=== PATIENT | female | born 1985 | race Caucasian/White ===

== ENCOUNTER → 2016-09-26 | Outpatient (CLI) | payer BC | END | disposition home or self-care (01) | LOC: M WUC 11:13 | PROVIDERS: ATTEND Specialist | DX: O24.113 Pre-existing type 2 diabetes mellitus, in pregnancy, third trimester (principal); Z36 Encounter for antenatal screening of mother; Z3A.00 Weeks of gestation of pregnancy not specified ==

== ENCOUNTER → 2016-10-01 | Outpatient (REF) | payer BC ==
[2016-10-01 17:53] LABS: BASO % 0.5 % (0.0-1.0); EOS # 0.1 K/mm3 (0.0-0.50); EOS % 1.6 % (0.0-3.0); LARGE UNSTAINED CELL # 0.2 K/mm3 (0.0-0.4); LYMPH % 23.8 % (24.0-44.0); MEAN CORPUSCULAR HEMOGLOBIN 28.5 pg (27.0-33.0); MEAN CORPUSCULAR HGB CONC 33.3 g/dl (32.0-36.5); MEAN CORPUSCULAR VOLUME 85.7 fl (80.0-96.0); MONO # 0.5 K/mm3 (0.0-0.8); MONO % 6.2 % (0.0-5.0); NEUTROPHILS # 5.4 K/mm3 (1.8-7.7); NEUTROPHILS % 65.9 % (36.0-66.0); PLATELET COUNT, AUTOMATED 224 k/mm3 (150-450); RED CELL DISTRIBUTION WIDTH 13.1 % (11.5-14.5); WHITE BLOOD COUNT 8.2 K/mm3 (4.0-10.0)
[2016-10-01 19:51] LABS: FREE T4 1.08 NG/DL (0.76-1.46)
[2016-10-04 11:31] LABS: HBsAg Prenatal NEGATIVE (NEGATIVE)
[2016-10-04 12:51] LABS: CONTROL LINE INT CTR LINE PRESENT; HIV SCRN NEGATIVE (NEGATIVE); HIV SCRN1 NEGATIVE (NEGATIVE)
== END | disposition home or self-care (01) ==
LOC: M LABSMT 16:45
PROVIDERS: ATTEND Specialist
DX: Z34.81 Encounter for supervision of other normal pregnancy, first trimester (principal); Z36 Encounter for antenatal screening of mother; Z3A.00 Weeks of gestation of pregnancy not specified

== ENCOUNTER → 2016-12-15 | Outpatient (CLI) | payer BC ==
--- NOTE | 2016-12-15 17:38 | REP ---
OB ULTRASOUND: REASON: anatomy. There are no pertinent priors. Multiple sonographic images of the gravid uterus show a single living intrauterine gestation in the cephalic presentation. Doppler interrogation of the heart shows a heart rate of 163 beats per minute. The placenta is anterior and not lying. The subjective amniotic fluid volume is within normal limits. The cervix measures 4.3 cm in length and is closed. Evaluation of the maternal adnexal spaces show no abnormalities The structures visualized unremarkable are as follows: Thalami, cavum, septum pellucidum, urinary bladder, extremities, cord insertion, stomach, right and left ventricular outflow tracts, and thorax. Structures suboptimally visualized are as follows: Cerebellum and posterior fossa, cisterna magna, four chamber heart, kidneys, spine, upper lip, and facial features. BPD 4.9 cm = 20 weeks 5 days HC 18.4 cm = 20 weeks 5 days AC 15.7 cm = 20 weeks 6 days FL 2.8 cm = 18 weeks 3 days Estimated weight 316 grams which is at the 39th percentile for a 20 week one day gestational age. IMPRESSION: Single living intrauterine gestation as described above and an estimated gestational age of 20 weeks 1 day via composite criteria and an estimated date of delivery of 05/03/2017. anatomical screen was complete as described above and followup is recommended. Signed by Vik Spicer DO 12/20/2016 02:51 P
== END ==
LOC: M RAD 16:07
PROVIDERS: ATTEND Specialist
DX: Z34.82 Encounter for supervision of other normal pregnancy, second trimester (principal); Z36 Encounter for antenatal screening of mother; Z3A.20 20 weeks gestation of pregnancy

== ENCOUNTER → 2016-12-28 | Outpatient (REF) | payer BC | LOC: M SFHCCLAY 10:59 | PROVIDERS: ATTEND Nurse Practitioner | DX: E11.8 Type 2 diabetes mellitus with unspecified complications (principal); E03.9 Hypothyroidism, unspecified ==

== ENCOUNTER → 2017-01-06 | Outpatient (CLI) | payer BC ==
--- NOTE | 2017-01-06 20:46 | REP ---
Clinical: Anatomical evaluation. Comparison: 12/15/2016 . Findings: Examination demonstrates a single live intrauterine in cephalic presentation. motion is identified by technologist. Placenta is noted anteriorly and grade zero without evidence for placenta previa or abruption. Amniotic fluid volume is normal. Cervix measures 5.2 cm in length and appears closed. No evidence for nuchal cord. Gestational age by LMP 22 weeks 2 days with XU 05/10/2017 . Gestational age by current measurements 24 weeks 4 days with XU 04/24/2017 . FHR equals 150 beats per minute. Estimated weight 679 grams (>97% by LMP; 80% by current measurements). Anatomical assessment demonstrates normal structures including cranium, choroid plexus, cavum, cerebellum/posterior fossa, facial features, lungs, four-chamber heart, diaphragm, stomach, cord insertion/three-vessel cord, kidneys/bladder, spine, and extremities. Impression: 1. Single live intrauterine in cephalic presentation demonstrating appropriate interval growth when compared to first ultrasound. 2. In conjunction with prior examination anatomical assessment is complete and normal. Signed by Joao Pal MD 01/06/2017 05:11 P
== END ==
LOC: M RAD 14:13
PROVIDERS: ATTEND Specialist
DX: Z34.82 Encounter for supervision of other normal pregnancy, second trimester (principal); Z36 Encounter for antenatal screening of mother; Z3A.24 24 weeks gestation of pregnancy

== ENCOUNTER → 2017-01-30 | Outpatient (CLI) | payer BC ==
[2017-01-30 17:32] LABS: BASO % 0.2 % (0.0-1.0); EOS # 0.2 K/mm3 (0.0-0.50); LARGE UNSTAINED CELL # 0.1 K/mm3 (0.0-0.4); LARGE UNSTAINED CELL % 1.6 % (0.0-4.0); LYMPH # 1.4 K/mm3 (1.5-4.5); LYMPH % 17.1 % (24.0-44.0); MEAN CORPUSCULAR HEMOGLOBIN 28.9 pg (27.0-33.0); MEAN CORPUSCULAR HGB CONC 32.9 g/dl (32.0-36.5); MEAN CORPUSCULAR VOLUME 87.8 fl (80.0-96.0); MONO # 0.6 K/mm3 (0.0-0.8); MONO % 7.6 % (0.0-5.0); NEUTROPHILS # 5.3 K/mm3 (1.8-7.7); NEUTROPHILS % 71.6 % (36.0-66.0); PLATELET COUNT, AUTOMATED 186 k/mm3 (150-450); RED CELL DISTRIBUTION WIDTH 14.4 % (11.5-14.5); WHITE BLOOD COUNT 7.4 K/mm3 (4.0-10.0)
== END ==
LOC: M WUC 08:25
PROVIDERS: ATTEND Specialist
DX: O24.112 Pre-existing type 2 diabetes mellitus, in pregnancy, second trimester (principal); Z36 Encounter for antenatal screening of mother; Z3A.00 Weeks of gestation of pregnancy not specified

== ENCOUNTER → 2017-01-30 | Outpatient (CLI) | payer BC ==
[2017-01-30 17:40] LABS: ALBUMIN 2.6 GM/DL (3.2-5.2); ALBUMIN/GLOBULIN RATIO 0.84 (1.00-1.93); ALKALINE PHOSPHATASE 50 U/L (45-117); ALT/SGPT 14 U/L (12-78); ANION GAP 9 MEQ/L (8-16); AST/SGOT 9 U/L (15-37); BILIRUBIN,TOTAL 0.3 MG/DL (0.2-1.0); BLOOD UREA NITROGEN 7 MG/DL (7-18); CALCIUM LEVEL 7.8 MG/DL (8.5-10.1); CARBON DIOXIDE LEVEL 24 MEQ/L (21-32); CHLORIDE LEVEL 105 MEQ/L (98-107); CHOLESTEROL LEVEL 190 MG/DL (<200); CREATININE FOR GFR 0.43 MG/DL (0.55-1.02); GLOMERULAR FILTRATION RATE > 60.0 (>60); GLUCOSE, FASTING 74 MG/DL (70-105); POTASSIUM SERUM 4.1 MEQ/L (3.5-5.1); SODIUM LEVEL 138 MEQ/L (136-145); TOTAL PROTEIN 5.7 GM/DL (6.4-8.2); TRIGLYCERIDES LEVEL 158 MG/DL (<150)
== END ==
LOC: M WUC 08:22
PROVIDERS: ATTEND Nurse Practitioner
DX: E11.8 Type 2 diabetes mellitus with unspecified complications (principal); E03.9 Hypothyroidism, unspecified

== ENCOUNTER 2017-02-17 07:57 | Outpatient (CLI) | payer BC ==
[~2017-02-17] VITALS: Ht 165.1 cm; Wt 115.0 kg
[2017-02-17 08:08] VITALS: BP 151/88
[2017-02-17 08:22] VITALS: BP 138/83
[2017-02-17] MEDS ORDERED: SING5CHW23 PO (09:20)
[2017-02-17] MEDS ORDERED: LEVO100T5 PO (09:20)
[2017-02-17] MEDS ORDERED: GLYB5TA PO (09:20)
[2017-02-17 09:27] VITALS: BP 124/73
[2017-02-17 10:41] VITALS: BP 125/60
[2017-02-17 10:54] LABS: MEAN CORPUSCULAR HGB CONC 34.3 g/dl (32.0-36.5); MEAN CORPUSCULAR VOLUME 84.5 fl (80.0-96.0); RED CELL DISTRIBUTION WIDTH 14.3 % (11.5-14.5); WHITE BLOOD COUNT 9.3 K/mm3 (4.0-10.0)
[2017-02-17 11:49] LABS: GLUCOSE, FASTING 157 MG/DL (70-105)
[2017-02-17 11:50] LABS: ALBUMIN 2.4 GM/DL (3.2-5.2); ALBUMIN/GLOBULIN RATIO 0.73 (1.00-1.93); ALKALINE PHOSPHATASE 62 U/L (45-117); ALT/SGPT 13 U/L (12-78); AMYLASE 38 U/L (25-115); ANION GAP 7 MEQ/L (8-16); AST/SGOT 7 U/L (15-37); BILIRUBIN,TOTAL 0.3 MG/DL (0.2-1.0); BLOOD UREA NITROGEN 5 MG/DL (7-18); CALCIUM LEVEL 8.4 MG/DL (8.5-10.1); CARBON DIOXIDE LEVEL 24 MEQ/L (21-32); CHLORIDE LEVEL 107 MEQ/L (98-107); CREATININE FOR GFR 0.38 MG/DL (0.55-1.02); GLOMERULAR FILTRATION RATE > 60.0 (>60); POTASSIUM SERUM 3.9 MEQ/L (3.5-5.1); SODIUM LEVEL 138 MEQ/L (136-145); TOTAL PROTEIN 5.7 GM/DL (6.4-8.2); URIC ACID 2.1 MG/DL (2.6-6.0)
== END 2017-02-17 12:25 | disposition home or self-care (01) ==
LOC: M LDO 07:57
PROVIDERS: ATTEND Obstetrics & Gynecology
DX: O99.89 Other specified diseases and conditions complicating pregnancy, childbirth and the puerperium (principal); O26.853 Spotting complicating pregnancy, third trimester; O24.420 Gestational diabetes mellitus in childbirth, diet controlled; O99.285 Endocrine, nutritional and metabolic diseases complicating the puerperium; E03.9 Hypothyroidism, unspecified; O99.340 Other mental disorders complicating pregnancy, unspecified trimester; Z79.84 Long term (current) use of oral hypoglycemic drugs; Z79.899 Other long term (current) drug therapy; Z3A.28 28 weeks gestation of pregnancy

== ENCOUNTER → 2017-03-18 | Outpatient (CLI) | payer BC ==
[~2017-03-18] MED LIST: COLA100C5 PO; FLUO20CA8 PO; GLYB5TA PO; IBUP-1114 PO; IBUP1TAB7 PO; LABE30TA PO; LEVO100T5 PO; MOM30SS PO; OXYC1TAB23 PO; PAXI40TA10 PO; PERCOCET PO; PRENTAB9 PO; PROAAER10 INH; SING5CHW23 PO
--- NOTE | 2017-03-18 16:20 | REP ---
Clinical: Growth evaluation. Comparison: 01/06/2017 . Findings: Examination demonstrates a single live intrauterine in cephalic presentation. motion is identified by technologist. Placenta is noted anteriorly and grade one without evidence for placenta previa or abruption. Amniotic fluid volume is normal. Nuchal cord cannot be excluded. Gestational age by LMP 32 weeks 3 days with XU 05/10/2017 . Gestational age by current measurements 33 weeks 3 days with XU 05/03/2017 . FHR equals 141 beats per minute. BPD 8.6 cm 34 weeks 4 days HC 30.1 cm 33 weeks 3 days AC 30.3 cm 34 weeks 2 days FL 6.5 cm 33 weeks 2 days HL 5.8 cm 33 weeks 6 days HC/AC ratio 1.00 Estimated weight 2310 grams ( 75th percentile). Amniotic fluid index = 23.0 cm (8.5 - 24.3) Impression: 1. Single live advanced gestation in cephalic presentation demonstrating appropriate interval growth. 2. Amniotic fluid index and estimated weight are within normal range. 3. Nuchal cord cannot be excluded. Signed by Joao Pal MD 03/18/2017 04:12 P
== END ==
LOC: M RAD 15:17
PROVIDERS: ATTEND Obstetrics & Gynecology
DX: O24.113 Pre-existing type 2 diabetes mellitus, in pregnancy, third trimester (principal); Z36 Encounter for antenatal screening of mother; Z3A.33 33 weeks gestation of pregnancy; E11.9 Type 2 diabetes mellitus without complications

== ENCOUNTER 2017-04-05 06:11 | Outpatient (CLI) | payer BC ==
[2017-04-05] VITALS (27 sets, daily range): BP systolic 133–206; BP diastolic 73–119
[~2017-04-05] VITALS: Ht 165.1 cm; Wt 125.0 kg
[~2017-04-05 06:11] MED LIST changes: -COLA100C5 PO; -FLUO20CA8 PO; -IBUP-1114 PO; -IBUP1TAB7 PO; -LABE30TA PO; -MOM30SS PO; -OXYC1TAB23 PO; -PAXI40TA10 PO; -PERCOCET PO; -PRENTAB9 PO; -PROAAER10 INH
[2017-04-05 09:39] LABS: MEAN CORPUSCULAR HEMOGLOBIN 28.8 pg (27.0-33.0); MEAN CORPUSCULAR VOLUME 84.8 fl (80.0-96.0); RED CELL DISTRIBUTION WIDTH 14.5 % (11.5-14.5); WHITE BLOOD COUNT 8.6 K/mm3 (4.0-10.0)
[2017-04-05 09:56] LABS: ALBUMIN 2.2 GM/DL (3.2-5.2); ALBUMIN/GLOBULIN RATIO 0.71 (1.00-1.93); ALKALINE PHOSPHATASE 115 U/L (45-117); ALT/SGPT 16 U/L (12-78); ANION GAP 7 MEQ/L (8-16); AST/SGOT 12 U/L (15-37); BILIRUBIN,TOTAL 0.2 MG/DL (0.2-1.0); BLOOD UREA NITROGEN 5 MG/DL (7-18); CALCIUM LEVEL 8.3 MG/DL (8.5-10.1); CARBON DIOXIDE LEVEL 25 MEQ/L (21-32); CHLORIDE LEVEL 103 MEQ/L (98-107); CREATININE FOR GFR 0.48 MG/DL (0.55-1.02); GLOMERULAR FILTRATION RATE > 60.0 (>60); GLUCOSE, FASTING 191 MG/DL (70-105); POTASSIUM SERUM 4.4 MEQ/L (3.5-5.1); SODIUM LEVEL 135 MEQ/L (136-145); TOTAL PROTEIN 5.3 GM/DL (6.4-8.2)
[2017-04-15] MEDS ORDERED: PAXI40TA10 PO (07:50)
[2017-04-15] MEDS ORDERED: PROAAER10 INH (07:55)
== END 2017-04-05 17:12 | disposition home or self-care (01) ==
LOC: M LDO 06:11
PROVIDERS: ATTEND Advanced Practice Midwife
DX: O36.8130 Decreased fetal movements, third trimester, not applicable or unspecified (principal); O13.3 Gestational [pregnancy-induced] hypertension without significant proteinuria, third trimester; Z3A.35 35 weeks gestation of pregnancy

== ENCOUNTER → 2017-04-07 | Outpatient (REF) | payer BC ==
[~2017-04-07] MED LIST changes: +COLA100C5 PO; +FLUO20CA8 PO; +IBUP-1114 PO; +IBUP1TAB7 PO; +LABE30TA PO; +MOM30SS PO; +OXYC1TAB23 PO; +PAXI40TA10 PO; +PERCOCET PO; +PRENTAB9 PO; +PROAAER10 INH
== END ==
LOC: M LAB REF 16:46
PROVIDERS: ATTEND Specialist
DX: O24.113 Pre-existing type 2 diabetes mellitus, in pregnancy, third trimester (principal); Z36 Encounter for antenatal screening of mother; Z3A.00 Weeks of gestation of pregnancy not specified

== ENCOUNTER → 2017-04-14 | Outpatient (CLI) | payer BC ==
[2017-04-14 16:47] LABS: MEAN CORPUSCULAR HEMOGLOBIN 28.2 pg (27.0-33.0); MEAN CORPUSCULAR HGB CONC 33.6 g/dl (32.0-36.5); MEAN CORPUSCULAR VOLUME 83.8 fl (80.0-96.0); RED CELL DISTRIBUTION WIDTH 14.6 % (11.5-14.5); WHITE BLOOD COUNT 9.7 K/mm3 (4.0-10.0)
[2017-04-14 17:09] LABS: ALBUMIN 2.1 GM/DL (3.2-5.2); ALBUMIN/GLOBULIN RATIO 0.62 (1.00-1.93); ALKALINE PHOSPHATASE 128 U/L (45-117); ALT/SGPT 23 U/L (12-78); ANION GAP 13 MEQ/L (8-16); AST/SGOT 19 U/L (15-37); BILIRUBIN,TOTAL 0.3 MG/DL (0.2-1.0); BLOOD UREA NITROGEN 6 MG/DL (7-18); CALCIUM LEVEL 8.3 MG/DL (8.5-10.1); CARBON DIOXIDE LEVEL 22 MEQ/L (21-32); CHLORIDE LEVEL 105 MEQ/L (98-107); CREATININE FOR GFR 0.42 MG/DL (0.55-1.02); GLOMERULAR FILTRATION RATE > 60.0 (>60); GLUCOSE, FASTING 63 MG/DL (70-105); POTASSIUM SERUM 4.6 MEQ/L (3.5-5.1); SODIUM LEVEL 140 MEQ/L (136-145); TOTAL PROTEIN 5.5 GM/DL (6.4-8.2)
== END ==
LOC: M WUC 13:39
PROVIDERS: ATTEND Obstetrics & Gynecology
DX: O24.113 Pre-existing type 2 diabetes mellitus, in pregnancy, third trimester (principal)

== ENCOUNTER → 2017-04-18 | Outpatient (CLI) | payer BC ==
--- NOTE | 2017-04-18 11:55 | REP ---
Obstetric ultrasound for growth: There is a single intrauterine gestation in a vertex presentation. There is movement and cardiac activity, the heart rate is 144 beats per minute. The placenta is anterior. There is no placenta previa or abruptio. The placenta demonstrates grade three maturity. The amniotic fluid volume subjectively is normal. The amniotic fluid index is 22.2 (7.5 - 24.5). By today's ultrasound the gestational age is 38 weeks 0 days with an XU of 05/02/2017. According to the first ultrasound during this gestation the gestational age is 37 weeks 6 days with an XU of 05/03/2017. By LMP 36 weeks 6 days with an XU of 05/10/2017. weight is for 4888 grams (10 pounds, 12 ounces). This is greater than the 79th percentile for 36 weeks 6 days. The maternal adnexa and cul-de-sac are unremarkable. Signed by Canelo Heath MD 04/18/2017 11:45 A
== END ==
LOC: M RAD 10:16
PROVIDERS: ATTEND Specialist
DX: Z36 Encounter for antenatal screening of mother (principal)

== ENCOUNTER 2017-04-19 13:33 | Inpatient (IN) | payer BC ==
[~2017-04-19] VITALS: Ht 165.1 cm; Wt 125.0 kg
[2017-04-19] VITALS (13 sets, daily range): BP systolic 122–174; BP diastolic 61–103
[~2017-04-19 13:33] MED LIST changes: -COLA100C5 PO; -FLUO20CA8 PO; -IBUP-1114 PO; -IBUP1TAB7 PO; -LABE30TA PO; -MOM30SS PO; -OXYC1TAB23 PO; -PERCOCET PO; -PRENTAB9 PO
[2017-04-19] MEDS ORDERED: NIFEdipine 10 MG CAP PO ONE (15:30)
[2017-04-19] MEDS ORDERED: LACTATED RINGER'S 1000 ML IV STA (15:54)
[2017-04-19] MEDS ORDERED: LR 1,000 ML IV SCH (15:54)
[2017-04-19] MEDS ORDERED: BICITRA 30ML SOLN UDC PO ONE (16:00)
[2017-04-19 16:10] LABS: MEAN CORPUSCULAR HEMOGLOBIN 28.4 pg (27.0-33.0); MEAN CORPUSCULAR HGB CONC 34.1 g/dl (32.0-36.5); MEAN CORPUSCULAR VOLUME 83.3 fl (80.0-96.0); WHITE BLOOD COUNT 11.4 K/mm3 (4.0-10.0)
--- NOTE | 2017-04-19 16:29 | HPE ---
DATE OF ADMISSION: 04/19/2017 CHIEF COMPLAINT: Headaches and blood pressures consistent with preeclampsia. HISTORY OF PRESENT ILLNESS: The patient is a 31-year-old, 2, para 1-0-0-1 at 37 weeks gestation with an estimated due date of 05/10/2017, by last menstrual period of 08/03/2016, confirmed by first trimester ultrasound. She presents complaining of headache since waking up this morning. She also complains of blurry vision. She has been having Nitesh Aguilera contractions for a few weeks now off and on. She denies leakage of fluid, bleeding, and discharge. She states that she is feeling the baby move. LABORATORY DATA: Blood type is O positive, blood pressures in the office have been ranging from 118-172 systolic over 64-96 diastolic. Blood pressure in the office today was 172/96. She is group B Streptococcus (GBS) positive, Rubella equivocal, HIV negative, gonorrhea and chlamydia negative, hepatitis B antigen negative, hepatitis C nonreactive. OBSTETRICAL ULTRASOUND: Ultrasound from 03/18/2017 shows anterior placenta, no previa or abruption, no abnormalities noted. PAST OBSTETRICAL HISTORY: 1. In 2008, she gave to a female weighing 8 pounds 4 ounces at 38 weeks via an emergency section secondary to bradycardia. PAST MEDICAL HISTORY: 1. Hypothyroidism. 2. Diabetes mellitus (White classification B). 3. Asthma. 4. Anxiety. MEDICATIONS: - glyburide 10 mg twice a day - levothyroxine 112 mcg - fluoxetine 40 mg - albuterol sulfate 0.63 mg/3 mL - Singulair 10 mg - vitamins PAST SURGICAL HISTORY: 1. In 2008, emergency section secondary to bradycardia. 2. Age 10, tonsillectomy. ALLERGIES: METFORMIN, respiratory symptoms. SOCIAL HISTORY: Patient is . Denies tobacco, alcohol, or drug use. PHYSICAL EXAMINATION: VITAL SIGNS: Temperature 99, pulse 93, respiratory rate 18, blood pressure 172/91. GENERAL: Patient looks fatigued. ABDOMEN: Gravid. FHR: 150, minimal variability, no accelerations, no decelerations. TOCOMETER: Contractions every 5-7 minutes. ASSESSMENT AND PLAN: 1. 32-year-old 2, para 1-0-0-1 at 37 weeks gestation with symptoms consistent with preeclampsia. Admit to labor and delivery. Preeclampsia profile. Labs have been ordered. Given nifedipine 10 mg by mouth. Establish IV access. 2. Anticipate repeat section. My preceptor for this patient encounter was Dr. Barney Rebolledo. The preceptor was physically present in the building during the encounter and was fully available. As needed, all aspects of the patient interview, examination, medical decision making process, and medical care plan development were reviewed and approved by the preceptor. The preceptor is aware and concurs with the plan as stated in the body of this note and will attest to such by his/her cosignature. Read and agree with above. In addition to above, labs obtained upon admission c /w pre-eclampsia. Patient was given antihypertensive for acute control of severe range elevated BP. Clinical picture consistent with pre-eclampsia w/ severe features. Plan is to deliver tonight instead of tomorrow's scheduled . Patient will be started on Magnesium Sulfate s/p . Dario Rebolledo D.O. AGUEDA
[2017-04-19] MEDS ORDERED: FLUO20CA8 PO (16:32)
[2017-04-19] MEDS ORDERED: PRENTAB9 PO (16:34)
[2017-04-19 17:12] LABS: ALT/SGPT 39 U/L (12-78); AST/SGOT 48 U/L (15-37); BILIRUBIN,TOTAL 0.4 MG/DL (0.2-1.0); GLOMERULAR FILTRATION RATE > 60.0 (>60); URIC ACID 4.8 MG/DL (2.6-6.0)
[2017-04-19] MEDS ORDERED: MORPHINE PRES-FREE INJ 10 MG/10 ML VIAL (J2274) As Ordered ONE (18:50)
[2017-04-19] MEDS ORDERED: OXYTOCIN INJ 10 UNITS/ML VIAL (J2590) As Ordered ONE ×2 (18:57→20:23)
[2017-04-19] MEDS ORDERED: METOCLOPRAMIDE INJ 10MG/2ML VIAL (J2765) IV PRN (19:12)
[2017-04-19] MEDS ORDERED: ONDANSETRON 4MG/2ML VIAL (J2405) IV PRN (19:12)
[2017-04-19] MEDS ORDERED: NALOXONE INJ 0.4 MG/1 ML VIAL (J2310) IV PRN ×2 (19:12)
[2017-04-19] MEDS ORDERED: NALBUPHINE HCL 10 MG/ML AMP (J2300) IV PRN (19:12)
[2017-04-19] MEDS ORDERED: PHENYLephrine HCL 500 MCG/5 ML (100MCG/ML) SYRINGE (J2370) As Ordered ONE (19:22)
[2017-04-19] MEDS ORDERED: MAGNESIUM *L&D* 4 GM/100 ML BAG (40MG/ML) (J3475) As Ordered ONE (19:34)
[2017-04-19] MEDS ORDERED: MAGNESIUM SULFATE 4% INJ 20GM/500ML (40MG/ML) (J3475) As Ordered ONE (19:34)
[2017-04-19] MEDS ORDERED: ONDANSETRON 4MG/2ML VIAL (J2405) As Ordered ONE (19:36)
[2017-04-19] MEDS ORDERED: KETOROLAC 60 MG/2 ML VIAL (J1885) As Ordered ONE (19:36)
[2017-04-19] MEDS ORDERED: ePHEDrine SULFATE 25 MG/5 ML(5MG/ML) SYRINGE As Ordered ONE (19:36)
[2017-04-19 20:18] LABS: CORD GAS ABE A -6.4; CORD GAS HCO3 A 24.7 MEQ/L; CORD GAS O2 SAT A 40.7 %; CORD GAS PH A 7.13 UNITS; CORD GAS PO2 A 24.2 mmHg
[2017-04-19 20:20] LABS: CORD GAS ABE V -4.6; CORD GAS HCO3 V 23.8 MEQ/L; CORD GAS O2 SAT V 50.5 %; CORD GAS PCO2 V 57.3 mmHg; CORD GAS PH V 7.237 UNITS; CORD GAS PO2 V 25.1 mmHg; CORD GAS SBC V 19.6 MEQ/L; CORD GAS TCO2 V 25.6 MEQ/L
[2017-04-19] MEDS ORDERED: MAG Sulf (OBGYN) 20GM/500ML 20,000 MG in APPROPRIATE DILUENT 1 EA IV SCH (20:53)
[2017-04-19] MEDS ORDERED: DOCUSATE SODIUM 100 MG CAP PO PRN (21:00)
[2017-04-19] MEDS ORDERED: PERCOCET 5MG/325MG TAB PO PRN (21:00)
[2017-04-19] MEDS ORDERED: CALCIUM GLUCONATE 1,000 MG in D5W MINI-BAG PLUS 100 ML IV PRN (21:00)
[2017-04-19] MEDS ORDERED: MOM 30ML SUSPENSION UDC PO PRN (21:00)
[2017-04-19] MEDS ORDERED: MEASLES,MUMPS,RUBELLA VACCINE INJ (MMR-II) (90707) SC SCH (21:00)
[2017-04-19] MEDS ORDERED: RHOGAM 300 MCG (1500 IU) INJ (J2790) IM SCH (21:00)
[2017-04-19] MEDS ORDERED: MAG Sulf (L&D) 4 GM/100 ML 4 GM in APPROPRIATE DILUENT 1 EA IV ONE (21:00)
[2017-04-19] MEDS: LR 1,000 ML IV SCH (21:18)
[2017-04-19] MEDS ORDERED: LABETALOL HCL 100 MG/20 ML VIAL IV STA (21:51)
[2017-04-20] VITALS (18 sets, daily range): BP systolic 125–167; BP diastolic 60–90
[2017-04-20] MEDS ORDERED: METOCLOPRAMIDE INJ 10MG/2ML VIAL (J2765) IV PRN (04:15)
[2017-04-20] MEDS ORDERED: ONDANSETRON 4MG/2ML VIAL (J2405) IV PRN (04:15)
[2017-04-20] MEDS ORDERED: LR 1,000 ML IV SCH (04:15)
[2017-04-20] MEDS ORDERED: fentaNYL 100 MCG/2 ML INJECTION (J3010) IV PRN (04:15)
[2017-04-20 07:17] LABS: MEAN CORPUSCULAR HEMOGLOBIN 28.1 pg (27.0-33.0); MEAN CORPUSCULAR HGB CONC 33.7 g/dl (32.0-36.5); MEAN CORPUSCULAR VOLUME 83.5 fl (80.0-96.0); RED CELL DISTRIBUTION WIDTH 14.9 % (11.5-14.5); WHITE BLOOD COUNT 9.8 K/mm3 (4.0-10.0)
[2017-04-20] MEDS: KETOROLAC 30 MG/ML VIAL (J1885) IV SCH ×3 (07:32→20:04)
[2017-04-20 07:35] LABS: ALT/SGPT 27 U/L (12-78); AST/SGOT 29 U/L (15-37); BILIRUBIN,TOTAL 0.3 MG/DL (0.2-1.0); CREATININE FOR GFR 0.47 MG/DL (0.55-1.02); GLOMERULAR FILTRATION RATE > 60.0 (>60); URIC ACID 4.9 MG/DL (2.6-6.0)
[2017-04-20] MEDS: PRENATAL VITAMINS CHEWABLE TABLET PO SCH (08:50)
[2017-04-20] MEDS ORDERED: ALBUTEROL 90 MCG/ACT 8GM HFA INHALER INH PRN (10:45)
[2017-04-20] MEDS: LR 1,000 ML IV SCH (10:47)
[2017-04-20] MEDS: glyBURIDE 5 MG TAB PO SCH ×2 (11:56→18:45)
[2017-04-20] MEDS: MONTELUKAST 10 MG TAB PO SCH (11:56)
[2017-04-20] MEDS: FLUoxetine 20 MG CAP PO SCH (11:57)
[2017-04-20] MEDS ORDERED: LEVOTHYROXINE 112MCG TABLET (0.112MG) PO SCH (18:00)
[2017-04-20] MEDS: LEVOTHYROXINE 112MCG TABLET (0.112MG) PO SCH (21:56)
[2017-04-20] MEDS: LABETALOL 200 MG TAB PO SCH (22:32)
[2017-04-21] VITALS (8 sets, daily range): BP systolic 137–168; BP diastolic 76–87
[2017-04-21] MEDS: IBUPROFEN 800 MG TAB PO SCH ×3 (04:24→20:15)
[2017-04-21] MEDS: glyBURIDE 5 MG TAB PO SCH ×2 (07:57→17:42)
[2017-04-21] MEDS: LABETALOL 200 MG TAB PO SCH (09:11)
[2017-04-21] MEDS: PRENATAL VITAMINS CHEWABLE TABLET PO SCH (09:11)
[2017-04-21] MEDS: MONTELUKAST 10 MG TAB PO SCH (09:12)
[2017-04-21] MEDS: FLUoxetine 20 MG CAP PO SCH (09:12)
[2017-04-21] MEDS: PERCOCET 5MG/325MG TAB PO PRN ×2 (13:23→21:40)
[2017-04-21] MEDS: LABETALOL 100 MG TAB PO SCH (20:14)
[2017-04-21] MEDS: LEVOTHYROXINE 112MCG TABLET (0.112MG) PO SCH (20:14)
[2017-04-22] MEDS: IBUPROFEN 800 MG TAB PO SCH (04:18)
[2017-04-22 06:37] VITALS: BP 168/96
[2017-04-22 06:42] VITALS: BP 168/79
[2017-04-22] MEDS: glyBURIDE 5 MG TAB PO SCH (07:30)
[2017-04-22] MEDS: LABETALOL 100 MG TAB PO SCH (07:47)
[2017-04-22] MEDS: PRENATAL VITAMINS CHEWABLE TABLET PO SCH (07:48)
[2017-04-22] MEDS: MONTELUKAST 10 MG TAB PO SCH (07:48)
[2017-04-22] MEDS: FLUoxetine 20 MG CAP PO SCH (07:48)
[2017-04-22] MEDS ORDERED: IBUP-1114 PO (09:08)
[2017-04-22] MEDS ORDERED: OXYC1TAB23 PO ×2 (09:08→09:09)
[2017-04-22] MEDS ORDERED: COLA100C5 PO (09:09)
[2017-04-22] MEDS ORDERED: MOM30SS PO (09:10)
[2017-04-22] MEDS ORDERED: LABE30TA PO (10:02)
[2017-04-22] MEDS ORDERED: IBUP1TAB7 PO (13:53)
[2017-04-22] MEDS ORDERED: PERCOCET PO (13:55)
== END 2017-04-22 10:40 | disposition home or self-care (01) | DRG 540 ==
LOC: M LDO 13:33 → M LDI 16:04 → M OBS 04-20 19:20
PROVIDERS: ADMIT Obstetrics & Gynecology; ATTEND Obstetrics & Gynecology
PROC: 10D00Z1 Extraction of Products of Conception, Low, Open Approach (ICD-10-PCS; principal; 2017-04-19)
PROC: 0UB70ZZ Excision of Bilateral Fallopian Tubes, Open Approach (ICD-10-PCS; 2017-04-19)
DX: O14.24 HELLP syndrome, complicating childbirth (principal); Z3A.37 37 weeks gestation of pregnancy; O99.284 Endocrine, nutritional and metabolic diseases complicating childbirth; E03.9 Hypothyroidism, unspecified; E11.65 Type 2 diabetes mellitus with hyperglycemia; O99.52 Diseases of the respiratory system complicating childbirth; J45.909 Unspecified asthma, uncomplicated; O94 Sequelae of complication of pregnancy, childbirth, and the puerperium; O24.12 Pre-existing type 2 diabetes mellitus, in childbirth; O99.344 Other mental disorders complicating childbirth; F41.9 Anxiety disorder, unspecified; Z79.899 Other long term (current) drug therapy; Z79.84 Long term (current) use of oral hypoglycemic drugs; Z88.8 Allergy status to other drugs, medicaments and biological substances; Z37.0 Single live birth; Z30.2 Encounter for sterilization

== ENCOUNTER → 2017-07-08 | Outpatient (REF) | payer BC ==
[~2017-07-08] MED LIST changes: +COLA100C5 PO; +FLUO20CA8 PO; +IBUP-1114 PO; +IBUP1TAB7 PO; +LABE30TA PO; +MOM30SS PO; +OXYC1TAB23 PO; +PERCOCET PO; +PRENTAB9 PO
== END ==
LOC: M LAB REF 12:18
PROVIDERS: ATTEND Physician Assistant
DX: J02.9 Acute pharyngitis, unspecified (principal)

== ENCOUNTER → 2017-08-16 | Outpatient (REF) | payer BC ==
[2017-08-16 13:06] LABS: ALBUMIN 3.7 GM/DL (3.2-5.2); ALBUMIN/GLOBULIN RATIO 1.03 (1.00-1.93); ALKALINE PHOSPHATASE 72 U/L (45-117); ALT/SGPT 30 U/L (12-78); ANION GAP 7 MEQ/L (8-16); AST/SGOT 15 U/L (7-37); BILIRUBIN,TOTAL 0.5 MG/DL (0.2-1.0); BLOOD UREA NITROGEN 13 MG/DL (7-18); CARBON DIOXIDE LEVEL 29 MEQ/L (21-32); CHLORIDE LEVEL 105 MEQ/L (98-107); CHOLESTEROL LEVEL 229 MG/DL (<200); CREATININE FOR GFR 0.76 MG/DL (0.55-1.02); GLOMERULAR FILTRATION RATE > 60.0 (>60); GLUCOSE, FASTING 131 MG/DL (70-105); POTASSIUM SERUM 4.5 MEQ/L (3.5-5.1); SODIUM LEVEL 141 MEQ/L (136-145); TOTAL PROTEIN 7.3 GM/DL (6.4-8.2); TRIGLYCERIDES LEVEL 191 MG/DL (<150)
== END ==
LOC: M SFHCCLAY 07:16
PROVIDERS: ATTEND Nurse Practitioner Family
DX: E11.8 Type 2 diabetes mellitus with unspecified complications (principal)

== ENCOUNTER → 2017-11-19 | Outpatient (CLI) | payer BC ==
[2017-11-19 17:50] LABS: FREE T4 0.82 NG/DL (0.76-1.46)
== END ==
LOC: M WUC 15:24
DX: E03.9 Hypothyroidism, unspecified (principal)

== ENCOUNTER → 2017-12-24 | Outpatient (CLI) | payer BC ==
[2017-12-24 12:36] LABS: BASO % 0.5 % (0.0-1.0); EOS # 0.2 10^3/uL (0.0-0.50); EOS % 2.7 % (0.0-3.0); HEMATOCRIT 42.5 % (36.0-47.0); HEMOGLOBIN 13.6 g/dl (12.0-15.5); IMMATURE GRANULOCYTE % 0.3 % (0-3.0); LYMPH # 2.2 10^3/uL (1.5-4.5); LYMPH % 28.9 % (24.0-44.0); MEAN CORPUSCULAR HEMOGLOBIN 25.2 pg (27.0-33.0); MEAN CORPUSCULAR VOLUME 78.7 fl (80.0-96.0); MONO # 0.6 10^3/uL (0.0-0.8); MONO % 7.9 % (0.0-5.0); NEUTROPHILS # 4.6 10^3/uL (1.8-7.7); NEUTROPHILS % 59.7 % (36.0-66.0); PLATELET COUNT, AUTOMATED 274 10^3/uL (150-450); RED CELL DISTRIBUTION WIDTH 14.6 % (11.5-14.5); WHITE BLOOD COUNT 7.7 10^3/uL (4.0-10.0)
[2017-12-24 13:03] LABS: ALBUMIN 3.8 GM/DL (3.2-5.2); ALBUMIN/GLOBULIN RATIO 1.03 (1.00-1.93); ALKALINE PHOSPHATASE 58 U/L (45-117); ALT/SGPT 17 U/L (12-78); ANION GAP 10 MEQ/L (8-16); AST/SGOT 13 U/L (7-37); BILIRUBIN,TOTAL 0.5 MG/DL (0.2-1.0); BLOOD UREA NITROGEN 10 MG/DL (7-18); CALCIUM LEVEL 8.8 MG/DL (8.5-10.1); CARBON DIOXIDE LEVEL 23 MEQ/L (21-32); CHLORIDE LEVEL 108 MEQ/L (98-107); CHOLESTEROL LEVEL 157 MG/DL (<200); CHOLESTEROL RISK RATIO 3.204 (<5); CREATININE FOR GFR 0.75 MG/DL (0.55-1.30); FREE T4 1.12 NG/DL (0.76-1.46); GLOMERULAR FILTRATION RATE > 60.0 (>60); GLUCOSE, FASTING 132 MG/DL (70-100); HDL CHOLESTEROL 49 MG/DL (>40); NON-HDL-C 108 MG/DL; POTASSIUM SERUM 4.8 MEQ/L (3.5-5.1); SODIUM LEVEL 141 MEQ/L (136-145); TOTAL PROTEIN 7.5 GM/DL (6.4-8.2); TRIGLYCERIDES LEVEL 125 MG/DL (<150)
[2017-12-24 13:29] LABS: ESTIMATED AVERAGE GLUCOSE 169 MG/DL (60-110); HEMOGLOBIN A1c 7.5 %
[2017-12-24 13:31] LABS: CREATININE, URINE 95.4 MG/DL; MALB URINE SIEMENS 34.6 MG/L; MAU/CREAT RATIO 36.2 MCG/MG (0.0-30.0)
== END ==
LOC: M WUC 08:20
DX: E11.8 Type 2 diabetes mellitus with unspecified complications (principal); I15.2 Hypertension secondary to endocrine disorders; E03.9 Hypothyroidism, unspecified; E78.5 Hyperlipidemia, unspecified
CPT/HCPCS: 84443

== ENCOUNTER → 2018-01-05 | Outpatient (CLI) | payer BC | LOC: M CARPUL 08:13 | DX: R01.1 Cardiac murmur, unspecified (principal) | CPT/HCPCS: 93306 ==

== ENCOUNTER → 2018-06-02 | Outpatient (REF) | payer BC | LOC: M LAB REF 14:06 | DX: Z12.4 Encounter for screening for malignant neoplasm of cervix (principal) ==

== ENCOUNTER → 2018-06-24 | Outpatient (CLI) | payer BC ==
[2018-06-24 19:38] LABS: ALBUMIN 3.8 GM/DL (3.2-5.2); ALBUMIN/GLOBULIN RATIO 1.19 (1.00-1.93); ALKALINE PHOSPHATASE 57 U/L (45-117); ALT/SGPT 18 U/L (12-78); ANION GAP 9 MEQ/L (8-16); AST/SGOT 7 U/L (7-37); BILIRUBIN,TOTAL 0.3 MG/DL (0.2-1.0); BLOOD UREA NITROGEN 9 MG/DL (7-18); CALCIUM LEVEL 8.8 MG/DL (8.5-10.1); CARBON DIOXIDE LEVEL 24 MEQ/L (21-32); CHLORIDE LEVEL 109 MEQ/L (98-107); CHOLESTEROL LEVEL 134 MG/DL (<200); CHOLESTEROL RISK RATIO 3.828 (<5); CREATININE FOR GFR 0.75 MG/DL (0.55-1.30); ESTIMATED AVERAGE GLUCOSE 154 MG/DL (60-110); GLOMERULAR FILTRATION RATE > 60.0 (>60); GLUCOSE, FASTING 83 MG/DL (70-100); HDL CHOLESTEROL 35 MG/DL (>40); LDL CHOLESTEROL 58 MG/DL (<100); NON-HDL-C 99 MG/DL; POTASSIUM SERUM 4.5 MEQ/L (3.5-5.1); SODIUM LEVEL 142 MEQ/L (136-145); TRIGLYCERIDES LEVEL 203 MG/DL (<150)
== END ==
LOC: M WUC 08:16
DX: E11.8 Type 2 diabetes mellitus with unspecified complications (principal); I15.2 Hypertension secondary to endocrine disorders; E78.5 Hyperlipidemia, unspecified
CPT/HCPCS: 80053

== ENCOUNTER → 2018-11-21 | Outpatient (CLI) | payer BC ==
[~2018-11-21] MED LIST changes: +LABE300T2 PO; -LABE30TA PO
[2018-11-21 10:01] LABS: ALBUMIN 3.6 GM/DL (3.2-5.2); ALT/SGPT 21 U/L (12-78); BILIRUBIN,TOTAL 0.2 MG/DL (0.2-1.0); BLOOD UREA NITROGEN 13 MG/DL (7-18); CALCIUM LEVEL 8.2 MG/DL (8.5-10.1); CARBON DIOXIDE LEVEL 23 MEQ/L (21-32); CHLORIDE LEVEL 109 MEQ/L (98-107); CHOLESTEROL LEVEL 145 MG/DL (<200); CHOLESTEROL RISK RATIO 3.372 (<5); CREATININE FOR GFR 0.67 MG/DL (0.55-1.30); FREE T4 1.32 NG/DL (0.76-1.46); GLOMERULAR FILTRATION RATE > 60.0 (>60); GLUCOSE, FASTING 112 MG/DL (70-100); HDL CHOLESTEROL 43 MG/DL (>40); LDL CHOLESTEROL 82 MG/DL (<100); NON-HDL-C 102 MG/DL; POTASSIUM SERUM 4.6 MEQ/L (3.5-5.1); SODIUM LEVEL 138 MEQ/L (136-145); TOTAL PROTEIN 6.9 GM/DL (6.4-8.2); TRIGLYCERIDES LEVEL 101 MG/DL (<150)
[2018-11-21 10:02] LABS: HEMOGLOBIN A1c 7.4 %
== END ==
LOC: M WUC 08:18
PROVIDERS: ATTEND Nurse Practitioner Family
DX: E11.8 Type 2 diabetes mellitus with unspecified complications (principal); E03.9 Hypothyroidism, unspecified; I15.2 Hypertension secondary to endocrine disorders; E78.5 Hyperlipidemia, unspecified

== ENCOUNTER 2019-01-31 23:56 | Emergency (ER) | payer BC ==
[~2019-01-31] VITALS: Ht 167.6 cm; Wt 112.7 kg
[2019-02-01] MEDS ORDERED: LISI10TA4 PO ×2 (00:05→05:12)
[2019-02-01] MEDS ORDERED: LISINOPRIL 10 MG TAB PO ONE (03:45)
[2019-02-01 03:52] VITALS: BP 157/87
[2019-02-01 05:15] VITALS: BP 140/79
== END 2019-02-01 05:31 | disposition home or self-care (01) ==
LOC: M ED 23:56
DX: I10 Essential (primary) hypertension (principal); E11.9 Type 2 diabetes mellitus without complications; F41.9 Anxiety disorder, unspecified; E66.9 Obesity, unspecified; Z79.899 Other long term (current) drug therapy; Z79.890 Hormone replacement therapy; Z79.84 Long term (current) use of oral hypoglycemic drugs; Z88.8 Allergy status to other drugs, medicaments and biological substances; J30.89 Other allergic rhinitis

== ENCOUNTER 2019-02-27 22:04 | Emergency (ER) | payer BC ==
[~2019-02-27] VITALS: Ht 167.6 cm; Wt 104.5 kg
[~2019-02-27 22:04] MED LIST changes: +LISI10TA4 PO
[2019-02-27] MEDS ORDERED: ENOX40IN3 (22:29)
[2019-02-27] MEDS ORDERED: SIMV20TA2 (22:29)
[2019-02-27] MEDS ORDERED: OMEP-221 (22:29)
--- NOTE | 2019-02-27 23:49 | REPVR ---
EXAM: US Duplex Left Lower Extremity Veins, Limited EXAM DATE/TIME: 02/27/2019 11:22 PM CLINICAL HISTORY: 34 years old, female; Pain; Leg, lower; Left; Additional info: Calf pain/recent surgery TECHNIQUE: Imaging protocol: Real-time Duplex ultrasound of the Left Lower Extremity with 2-D coronel scale, color Doppler flow and spectral waveform analysis. Limited exam focused on the left lower extremity veins. COMPARISON: No relevant prior studies available. FINDINGS: Left deep veins: Unremarkable. The common femoral, femoral and popliteal veins are patent without thrombus. Normal compressibility, augmentation response and Doppler waveforms. Left superficial veins: Unremarkable. Saphenofemoral junction is patent without thrombus. Soft tissues: Unremarkable. IMPRESSION: No sonographic evidence of deep vein thrombosis. Electronically signed by: Bassam Levy On 02/27/2019 23:49:14 PM
[2019-02-28] MEDS ORDERED: METAL LOCK LOOP XX ONE (00:57)
[2019-02-28 04:21] VITALS: BP 108/56
== END 2019-02-28 04:25 | disposition home or self-care (01) ==
LOC: M ED 22:04
DX: M79.662 Pain in left lower leg (principal); E11.9 Type 2 diabetes mellitus without complications; I10 Essential (primary) hypertension; J45.909 Unspecified asthma, uncomplicated; E78.5 Hyperlipidemia, unspecified; Z98.84 Bariatric surgery status; Z79.899 Other long term (current) drug therapy; J30.2 Other seasonal allergic rhinitis; Z88.8 Allergy status to other drugs, medicaments and biological substances

== ENCOUNTER → 2019-03-17 | Outpatient (CLI) | payer BC ==
[~2019-03-17] MED LIST changes: +ENOX40IN3; +OMEP-221; +SIMV20TA2
[2019-03-17 17:47] LABS: BASO % 0.4 % (0.0-1.0); EOS # 0.1 10^3/uL (0.0-0.50); EOS % 2.6 % (0.0-3.0); HEMATOCRIT 38.2 % (36.0-47.0); HEMOGLOBIN 12.2 g/dl (12.0-15.5); LYMPH # 1.6 10^3/uL (1.5-4.5); MEAN CORPUSCULAR HGB CONC 31.9 g/dl (32.0-36.5); MEAN CORPUSCULAR VOLUME 78.3 fl (80.0-96.0); MONO # 0.5 10^3/uL (0.0-0.8); MONO % 9.4 % (0.0-5.0); NEUTROPHILS # 2.8 10^3/uL (1.8-7.7); NEUTROPHILS % 55.4 % (36.0-66.0); PLATELET COUNT, AUTOMATED 182 10^3/uL (150-450); RED BLOOD COUNT 4.88 10^6/uL (4.00-5.40); WHITE BLOOD COUNT 5.1 10^3/uL (4.0-10.0)
[2019-03-17 17:48] LABS: HEMATOCRIT 38.2 % (36.0-47.0)
[2019-03-17 17:56] LABS: ALBUMIN 3.5 GM/DL (3.2-5.2); ALT/SGPT 44 U/L (12-78); BILIRUBIN,TOTAL 0.3 MG/DL (0.2-1.0); BLOOD UREA NITROGEN 6 MG/DL (7-18); CALCIUM LEVEL 8.1 MG/DL (8.5-10.1); CARBON DIOXIDE LEVEL 25 MEQ/L (21-32); CHLORIDE LEVEL 109 MEQ/L (98-107); CREATININE FOR GFR 0.74 MG/DL (0.55-1.30); FERRITIN 18 NG/ML (8-252); GLOMERULAR FILTRATION RATE > 60.0 (>60); GLUCOSE, FASTING 151 MG/DL (70-100); IRON (FE) 26 UG/DL (50-170); MAGNESIUM LEVEL 1.8 MG/DL (1.8-2.4); PHOSPHORUS LEVEL 3.1 MG/DL (2.5-4.9); POTASSIUM SERUM 4.1 MEQ/L (3.5-5.1); SODIUM LEVEL 141 MEQ/L (136-145); TOTAL PROTEIN 6.6 GM/DL (6.4-8.2)
[2019-03-17 18:07] LABS: HEMOGLOBIN A1c 7.2 %
[2019-03-17 18:14] LABS: TOTAL IRON BINDING CAPACITY 325 UG/DL (250-450)
[2019-03-19 12:06] LABS: TOTAL 25(OH) VITAMIN D 41.1 NG/ML (30.0-100.0)
[2019-03-19 12:07] LABS: VITAMIN B12 LEVEL > 2000 PG/ML (247-911)
== END ==
LOC: M WUC 15:07
PROVIDERS: ATTEND Surgery
DX: K91.2 Postsurgical malabsorption, not elsewhere classified (principal); E55.9 Vitamin D deficiency, unspecified; Z98.84 Bariatric surgery status

== ENCOUNTER 2019-08-29 03:47 | Emergency (ER) | payer BC ==
[~2019-08-29] VITALS: Ht 162.6 cm; Wt 81.8 kg
[~2019-08-29 03:47] MED LIST changes: +FLUO20CA20 PO; -FLUO20CA8 PO; -SIMV20TA2; +SIMV20TA22
[2019-08-29 04:27] LABS: BASO % 0.4 % (0.0-1.0); EOS # 0.1 10^3/uL (0.0-0.5); EOS % 1.9 % (0.0-3.0); HEMATOCRIT 39.3 % (36.0-47.0); LYMPH # 2.5 10^3/uL (1.5-5.0); LYMPH % 36.7 % (24.0-44.0); MEAN CORPUSCULAR HEMOGLOBIN 24.7 pg (27.0-33.0); MEAN CORPUSCULAR HGB CONC 30.5 g/dl (32.0-36.5); MEAN CORPUSCULAR VOLUME 80.9 fl (80.0-96.0); MONO # 0.5 10^3/uL (0.0-0.8); MONO % 7.8 % (0.0-5.0); NEUTROPHILS # 3.5 10^3/uL (1.5-8.5); NEUTROPHILS % 53.1 % (36.0-66.0); PLATELET COUNT, AUTOMATED 256 10^3/uL (150-450); RED BLOOD COUNT 4.86 10^6/uL (4.00-5.40); WHITE BLOOD COUNT 6.7 10^3/uL (4.0-10.0)
[2019-08-29 04:38] LABS: INR 1.09; PROTHROMBIN TIME 13.8 SECONDS (11.8-14.0)
[2019-08-29 04:46] LABS: PARTIAL THROMBOPLASTIN TIME 30.4 SECONDS (25.0-38.4)
[2019-08-29 05:13] LABS: ALBUMIN 3.4 GM/DL (3.2-5.2); ALT/SGPT 28 U/L (12-78); BILIRUBIN,DIRECT < 0.1 MG/DL (0.0-0.2); BILIRUBIN,TOTAL 0.4 MG/DL (0.2-1.0); BLOOD UREA NITROGEN 8 MG/DL (7-18); CALCIUM LEVEL 9.1 MG/DL (8.5-10.1); CARBON DIOXIDE LEVEL 26 MEQ/L (21-32); CHLORIDE LEVEL 107 MEQ/L (98-107); CK-MB VALUE MASS < 1.0 NG/ML (<3.6); CPK CREATINE PHOSPHOKINASE 53 U/L (26-192); CREATININE FOR GFR 0.72 MG/DL (0.55-1.30); FREE T4 0.93 NG/DL (0.76-1.46); GLOMERULAR FILTRATION RATE > 60.0 (>60); GLUCOSE, FASTING 97 MG/DL (70-100); LIPASE 94 U/L (73-393); MB/CK RELATIVE INDEX 1.89 (< OR =4); POTASSIUM SERUM 3.9 MEQ/L (3.5-5.1); SODIUM LEVEL 142 MEQ/L (136-145); TOTAL PROTEIN 6.7 GM/DL (6.4-8.2); TROPONIN I < 0.02 NG/ML (< 0.10)
[2019-08-29] MEDS ORDERED: IBUPROFEN 800 MG TAB PO ONE (06:30)
[2019-08-29] MEDS ORDERED: ISOVUE-370 76% 100ML VIAL (Q9967) As Ordered ONE (06:42)
[2019-08-29] MEDS ORDERED: KETOROLAC 30 MG/ML VIAL (J1885) IV ONE (07:00)
--- NOTE | 2019-08-29 07:33 | REPVR ---
PROCEDURE INFORMATION: Exam: CT Angiography Chest With Contrast Exam date and time: 08/29/2019 6:23 AM Age: 34 years old Clinical indication: Chest pain; Type not specified; Additional info: Ekg changes, chest pain, SOB TECHNIQUE: Imaging protocol: Computed tomographic angiography of the chest with intravenous contrast. 3D rendering: MIP and/or 3D reconstructed images were created by the technologist. Radiation optimization: All CT scans at this facility use at least one of these dose optimization techniques: automated exposure control; mA and/or kV adjustment per patient size (includes targeted exams where dose is matched to clinical indication); or iterative reconstruction. Contrast material: ISO; Contrast volume: 75 ml; Contrast route: AC; COMPARISON: CR PORTABLE CHEST X-RAY 08/29/2019 4:18 AM FINDINGS: Pulmonary arteries: Normal. No pulmonary emboli. Aorta: Unremarkable. No aortic aneurysm. No aortic dissection. Lungs: There is 0.9 x 0.6 cm left lower lobe lung nodule (axial image 56). Pleural space: Unremarkable. No pneumothorax. No pleural effusion. Heart: Unremarkable. No cardiomegaly. No pericardial effusion. Stomach and bowel: The patient status post gastric bypass. Lymph nodes: Unremarkable. No enlarged lymph nodes. Bones/joints: Unremarkable. No acute fracture. Soft tissues: Unremarkable. IMPRESSION: 1. No CT evidence of pulmonary embolism or right heart strain. 2. 0.9 x 0.6 cm left lower lobe lung nodule. - If patient does not have known cancer, follow up should be based on clinical information because of the low risk of cancer in this age group. - For both low risk and high risk patients, consider CT at 3 months, PET/CT or biopsy. cobrin Nolasco al., Fleischner Society, 2017. Electronically signed by: Gatito Zavala On 08/29/2019 07:33:11 AM
--- NOTE | 2019-08-29 08:06 | REP ---
Portable chest x-ray: Single view. History: Chest pain. No comparison study. Findings: EKG monitoring electrodes overlie the chest. Lungs are well inflated and clear. Cardiomediastinal silhouette and bony thorax are unremarkable. Pulmonary vasculature is not increased. Impression: Negative portable chest x-ray. Electronically Signed by Beto Tejeda MD 08/29/2019 07:58 A
--- NOTE | 2019-08-29 08:20 | ECGEPIP ---
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
[2019-08-29 08:45] VITALS: BP 112/70
== END 2019-08-29 09:00 | disposition home or self-care (01) ==
LOC: M ED 03:47
DX: R07.89 Other chest pain (principal); E11.9 Type 2 diabetes mellitus without complications; J45.909 Unspecified asthma, uncomplicated; K21.9 Gastro-esophageal reflux disease without esophagitis; E03.9 Hypothyroidism, unspecified; Z82.49 Family history of ischemic heart disease and other diseases of the circulatory system; Z98.84 Bariatric surgery status; Z88.8 Allergy status to other drugs, medicaments and biological substances
CPT/HCPCS: 36415; 71045; 71275; 80048; 80076; 82550; 82553; 83690; 84439; 84443; 84484; 85025; 85610; 85730; 93005; 93041; 94760; 96374; 99285; J1885; Q9967

== ENCOUNTER → 2019-09-03 | Outpatient (CLI) | payer BC ==
[2019-09-03 14:48] LABS: BASO % 0.5 % (0.0-1.0); EOS # 0.1 10^3/uL (0.0-0.5); EOS % 2.1 % (0.0-3.0); HEMATOCRIT 42.7 % (36.0-47.0); HEMOGLOBIN 12.9 g/dl (12.0-15.5); LYMPH # 2.1 10^3/uL (1.5-5.0); LYMPH % 37.4 % (24.0-44.0); MEAN CORPUSCULAR HEMOGLOBIN 24.6 pg (27.0-33.0); MEAN CORPUSCULAR HGB CONC 30.2 g/dl (32.0-36.5); MEAN CORPUSCULAR VOLUME 81.3 fl (80.0-96.0); MONO # 0.5 10^3/uL (0.0-0.8); MONO % 8.6 % (0.0-5.0); NEUTROPHILS # 2.9 10^3/uL (1.5-8.5); NEUTROPHILS % 51.2 % (36.0-66.0); PLATELET COUNT, AUTOMATED 268 10^3/uL (150-450); RED BLOOD COUNT 5.25 10^6/uL (4.00-5.40); WHITE BLOOD COUNT 5.6 10^3/uL (4.0-10.0)
[2019-09-03 14:51] LABS: HEMATOCRIT 42.7 % (36.0-47.0)
[2019-09-03 14:56] LABS: ALBUMIN 3.7 GM/DL (3.2-5.2); ALT/SGPT 30 U/L (12-78); BILIRUBIN,TOTAL 0.4 MG/DL (0.2-1.0); BLOOD UREA NITROGEN 9 MG/DL (7-18); CARBON DIOXIDE LEVEL 24 MEQ/L (21-32); CHLORIDE LEVEL 109 MEQ/L (98-107); CREATININE FOR GFR 0.69 MG/DL (0.55-1.30); FERRITIN 8 NG/ML (8-252); GLOMERULAR FILTRATION RATE > 60.0 (>60); GLUCOSE, FASTING 87 MG/DL (70-100); IRON (FE) 40 UG/DL (50-170); PERCENT SATURATION 9.2 % (13.2-45.0); POTASSIUM SERUM 4.7 MEQ/L (3.5-5.1); SODIUM LEVEL 139 MEQ/L (136-145); TOTAL IRON BINDING CAPACITY 433 UG/DL (250-450); TOTAL PROTEIN 7.5 GM/DL (6.4-8.2)
[2019-09-03 15:04] LABS: TOTAL 25(OH) VITAMIN D 34.6 NG/ML (30.0-100.0); VITAMIN B12 LEVEL 601 PG/ML (247-911)
[2019-09-03 15:14] LABS: HEMOGLOBIN A1c 6.6 %
== END ==
LOC: M WUC 10:29
PROVIDERS: ATTEND Physician Assistant
DX: K91.2 Postsurgical malabsorption, not elsewhere classified (principal); Z98.84 Bariatric surgery status; E55.9 Vitamin D deficiency, unspecified

== ENCOUNTER → 2019-09-03 | Outpatient (CLI) | payer BC ==
[2019-09-03 15:04] LABS: FREE THYROXINE INDEX 3.2 % (1.3-4.8); T UPTAKE 34 % (30-39); THYROXINE (T4) 9.5 UG/DL (4.5-12.0)
[2019-09-03 15:05] LABS: THYROID PEROXIDASE ANTIBODY > 1300.0 U/ML (<60.0)
== END ==
LOC: M WUC 10:33
PROVIDERS: ATTEND Nurse Practitioner Family
DX: R79.89 Other specified abnormal findings of blood chemistry (principal)

== ENCOUNTER → 2019-11-29 | Outpatient (CLI) | payer BC ==
--- NOTE | 2019-11-29 21:09 | REP ---
Clinical: Follow-up pulmonary nodule. Technique: Axial noncontrast images from the thoracic inlet to the upper abdomen with coronal and sagittal re-formations. Comparison: 08/29/2019. Findings: 9 mm semisolid density in the posterior left lower lobe (image 59) now demonstrates decreased solid component and vague borders suggesting minimal residual scarring at the site of prior focal process. The bilateral lung biggs are otherwise relatively well aerated and essentially clear. No further significant consolidation, nodule or mass lesion is appreciated. No pleural effusion. No pneumothorax. Tracheobronchial tree is patent. No adenopathy noted. The mediastinum demonstrates normal thoracic aorta, pulmonary vasculature and heart/pericardium. Surrounding musculoskeletal structures are intact and without focal abnormality. Limited upper abdomen demonstrates normal bilateral adrenal glands and evidence of prior gastric bypass surgery. Impression: 1. Previously identified 9 mm nodule in the left lower lobe now has a somewhat semisolid improving appearance which may represent small amount of residual scarring at the site of prior small process. 2. No further acute mediastinal or pleuroparenchymal process appreciated. Electronically Signed by Joao Pal MD 11/29/2019 09:01 P
== END ==
LOC: M RAD 07:05
PROVIDERS: ATTEND Nurse Practitioner Family
DX: R91.1 Solitary pulmonary nodule (principal)

== ENCOUNTER → 2020-03-13 | Outpatient (REF) | payer BC ==
[2020-03-13 12:35] LABS: BASO % 0.7 % (0.0-1.0); EOS # 0.2 10^3/uL (0.0-0.5); EOS % 3.2 % (0.0-3.0); HEMATOCRIT 40.4 % (36.0-47.0); HEMOGLOBIN 12.8 g/dl (12.0-15.5); LYMPH # 2.2 10^3/uL (1.5-5.0); LYMPH % 41.4 % (24.0-44.0); MEAN CORPUSCULAR HGB CONC 31.7 g/dl (32.0-36.5); MEAN CORPUSCULAR VOLUME 82.1 fl (80.0-96.0); MONO # 0.5 10^3/uL (0.0-0.8); MONO % 9.7 % (0.0-5.0); NEUTROPHILS # 2.4 10^3/uL (1.5-8.5); NEUTROPHILS % 44.8 % (36.0-66.0); PLATELET COUNT, AUTOMATED 249 10^3/uL (150-450); RED BLOOD COUNT 4.92 10^6/uL (4.00-5.40); WHITE BLOOD COUNT 5.4 10^3/uL (4.0-10.0)
[2020-03-13 12:43] LABS: FERRITIN 6 NG/ML (8-252); IRON (FE) 36 UG/DL (50-170); MAGNESIUM LEVEL 1.7 MG/DL (1.8-2.4); PERCENT SATURATION 9.5 % (13.2-45.0); PHOSPHORUS LEVEL 4.1 MG/DL (2.5-4.9); TOTAL IRON BINDING CAPACITY 380 UG/DL (250-450)
[2020-03-13 12:49] LABS: VITAMIN B12 LEVEL > 2000 PG/ML (247-911)
[2020-03-13 15:31] LABS: HEMATOCRIT 40.4 % (36.0-47.0)
== END ==
LOC: M LABDRAWC 12:04
PROVIDERS: ATTEND Physician Assistant
DX: K91.2 Postsurgical malabsorption, not elsewhere classified (principal); Z98.84 Bariatric surgery status; E55.9 Vitamin D deficiency, unspecified; Z86.39 Personal history of other endocrine, nutritional and metabolic disease

== ENCOUNTER → 2020-03-13 | Outpatient (REF) | payer BC ==
[2020-03-13 13:19] LABS: ALBUMIN 3.6 GM/DL (3.2-5.2); ALT/SGPT 39 U/L (12-78); BILIRUBIN,TOTAL 0.4 MG/DL (0.2-1.0); BLOOD UREA NITROGEN 9 MG/DL (7-18); CALCIUM LEVEL 9.1 MG/DL (8.5-10.1); CARBON DIOXIDE LEVEL 28 MEQ/L (21-32); CHLORIDE LEVEL 108 MEQ/L (98-107); CREATININE FOR GFR 0.76 MG/DL (0.55-1.30); FREE T4 1.14 NG/DL (0.76-1.46); GLOMERULAR FILTRATION RATE > 60.0 (>60); GLUCOSE, FASTING 80 MG/DL (70-100); POTASSIUM SERUM 4.6 MEQ/L (3.5-5.1); SODIUM LEVEL 141 MEQ/L (136-145); TOTAL PROTEIN 6.7 GM/DL (6.4-8.2)
[2020-03-13 13:47] LABS: HEMOGLOBIN A1c 6.3 %
== END ==
LOC: M SFHCCLAY 08:49
PROVIDERS: ATTEND Nurse Practitioner Family
DX: E78.5 Hyperlipidemia, unspecified (principal); E03.9 Hypothyroidism, unspecified; E11.8 Type 2 diabetes mellitus with unspecified complications

== ENCOUNTER → 2020-03-31 | Outpatient (CLI) | payer BC ==
--- NOTE | 2020-03-31 09:14 | REP ---
Clinical: Right upper quadrant pain. Technique: Real time coronel scale ultrasound examination using curved array transducer. Findings: Liver and visualized pancreas are normal in contour, size, echogenicity without focal hepatic or pancreatic lesion identified. The gallbladder is normal and without gallstones, wall thickening, or pericholecystic fluid. No biliary ductal dilatation is appreciated and the common bile duct measures 4.4 mm diameter. Right kidney is normal in reniform shape without hydronephrosis and measures 11.7 x 6.0 x 4.6 cm. Incidental small extrarenal pelvis noted. No ascites. Impression: 1. Normal right upper quadrant ultrasound. Electronically Signed by Joao Pal MD 03/31/2020 09:06 A
== END ==
LOC: M WHC 08:21
PROVIDERS: ATTEND Surgery
DX: R10.11 Right upper quadrant pain (principal); Z98.84 Bariatric surgery status

== ENCOUNTER → 2020-08-12 | Outpatient (REF) | payer BC ==
[2020-08-13 11:47] LABS: APPEARANCE, URINE CLEAR (CLEAR); BACTERIA, URINE AUTO NEGATIVE (NEGATIVE); BILIRUBIN, URINE AUTO NEGATIVE (NEGATIVE); BLOOD, URINE BLOOD NEGATIVE (NEGATIVE); COLOR, URINE YELLOW (YELLOW); GLUCOSE, URINE (UA) AUTO NEGATIVE (NEGATIVE); KETONE, URINE AUTO NEGATIVE (NEGATIVE); LEUKOCYTE ESTERASE, URINE AUTO NEGATIVE (NEGATIVE); NITRITE, URINE AUTO NEGATIVE (NEGATIVE); PROTEIN, URINE AUTO NEGATIVE (NEGATIVE); RBC, URINE AUTO 0 /HPF (0-3); SPECIFIC GRAVITY URINE AUTO 1.012 (1.002-1.035); SQUAMOUS EPITHELIAL CELL UR AU 0 /HPF (0-6); UROBILINOGEN, URINE AUTO 0.2 mg/dL (0.0-2.0); WBC, URINE AUTO 0 /HPF (0-3)
== END ==
LOC: M SFHCCLAY 15:43
PROVIDERS: ATTEND Nurse Practitioner Family
DX: N30.90 Cystitis, unspecified without hematuria (principal)

== ENCOUNTER → 2020-08-15 | Outpatient (CLI) | payer BC ==
[~2020-08-15] MED LIST changes: +HYDR-3363; +MONT5TAB2
== END ==
LOC: M LABSMTC 11:50
PROVIDERS: ATTEND Family Medicine
DX: Z20.828 Contact with and (suspected) exposure to other viral communicable diseases (principal)

== ENCOUNTER 2020-08-16 20:11 | Emergency (ER) | payer BC ==
[~2020-08-16] VITALS: Ht 165.1 cm; Wt 77.6 kg
[~2020-08-16 20:11] MED LIST changes: -HYDR-3363; -MONT5TAB2
[2020-08-16] MEDS ORDERED: MONT5TAB2 (20:23)
[2020-08-16] MEDS ORDERED: OMEP-221 (20:23)
[2020-08-16] MEDS ORDERED: HYDR-3363 (20:23)
[2020-08-16] MEDS ORDERED: NS 1,000 ML IV ONE (21:30)
[2020-08-16] MEDS ORDERED: METOCLOPRAMIDE INJ 10MG/2ML VIAL (J2765 PER 1) IV ONE (21:30)
[2020-08-16 21:51] LABS: BASO % 0.6 % (0.0-1.0); EOS # 0.1 10^3/uL (0.0-0.5); EOS % 1.9 % (0.0-3.0); HEMATOCRIT 39.7 % (36.0-47.0); HEMOGLOBIN 12.1 g/dl (12.0-15.5); LYMPH # 2.1 10^3/uL (1.5-5.0); LYMPH % 30.6 % (24.0-44.0); MEAN CORPUSCULAR HEMOGLOBIN 23.7 pg (27.0-33.0); MEAN CORPUSCULAR HGB CONC 30.5 g/dl (32.0-36.5); MEAN CORPUSCULAR VOLUME 77.8 fl (80.0-96.0); MONO # 0.5 10^3/uL (0.0-0.8); MONO % 7.5 % (0.0-5.0); NEUTROPHILS % 59.1 % (36.0-66.0); PLATELET COUNT, AUTOMATED 294 10^3/uL (150-450); WHITE BLOOD COUNT 6.8 10^3/uL (4.0-10.0)
[2020-08-16 22:19] LABS: ALBUMIN 3.8 GM/DL (3.2-5.2); ALT/SGPT 34 U/L (12-78); BILIRUBIN,DIRECT < 0.1 MG/DL (0.0-0.2); BILIRUBIN,TOTAL 0.3 MG/DL (0.2-1.0); BLOOD UREA NITROGEN 14 MG/DL (7-18); CALCIUM LEVEL 8.8 MG/DL (8.5-10.1); CARBON DIOXIDE LEVEL 26 MEQ/L (21-32); CHLORIDE LEVEL 108 MEQ/L (98-107); CREATININE FOR GFR 0.74 MG/DL (0.55-1.30); GLOMERULAR FILTRATION RATE > 60.0 (>60); GLUCOSE, FASTING 90 MG/DL (70-100); LIPASE 143 U/L (73-393); POTASSIUM SERUM 4.1 MEQ/L (3.5-5.1); SODIUM LEVEL 140 MEQ/L (136-145)
[2020-08-16 22:25] LABS: HCG, SERUM QUALITATIVE NEGATIVE (NEGATIVE)
[2020-08-16] MEDS: GASTROGRAFIN SOLUTION 30ML PO SCH (23:05)
[2020-08-17] MEDS: GASTROGRAFIN SOLUTION 30ML PO SCH (00:08)
[2020-08-17] MEDS ORDERED: ISOVUE-370 76% 100ML VIAL As Ordered ONE (00:10)
--- NOTE | 2020-08-17 00:48 | REPVR ---
PROCEDURE INFORMATION: Exam: CT Head Without Contrast Exam date and time: 08/16/2020 12:28 AM Age: 35 years old Clinical indication: Pain; Visual disturbance; Headache; Additional info: Headache vision changes TECHNIQUE: Imaging protocol: Computed tomography of the head without contrast. Radiation optimization: All CT scans at this facility use at least one of these dose optimization techniques: automated exposure control; mA and/or kV adjustment per patient size (includes targeted exams where dose is matched to clinical indication); or iterative reconstruction. COMPARISON: No relevant prior studies available. FINDINGS: Brain: Normal. No hemorrhage. Unremarkable white matter. No mass effect. Cerebral ventricles: No ventriculomegaly. Bones/joints: Unremarkable. No acute fracture. Paranasal sinuses: Visualized sinuses are unremarkable. No fluid levels. Mastoid air cells: Visualized mastoid air cells are well aerated. Soft tissues: Unremarkable. IMPRESSION: No acute intracranial abnormality. Electronically signed by: Benigno Lynch On 08/17/2020 00:48:59 AM
--- NOTE | 2020-08-17 01:02 | REPVR ---
PROCEDURE INFORMATION: Exam: CT Abdomen And Pelvis With Contrast Exam date and time: 08/16/2020 12:28 AM Age: 35 years old Clinical indication: Abdominal pain; Localized; Upper; Additional info: Upper abd pain, HX gastric bypass TECHNIQUE: Imaging protocol: Computed tomography of the abdomen and pelvis with intravenous contrast. Radiation optimization: All CT scans at this facility use at least one of these dose optimization techniques: automated exposure control; mA and/or kV adjustment per patient size (includes targeted exams where dose is matched to clinical indication); or iterative reconstruction. Contrast material: ISOVUE 370; Contrast volume: 100 ml; Contrast route: INTRAVENOUS (IV); COMPARISON: 1. GALLBLADDER (LIMITED ABD) US 03/31/2020 8:[address] ANGIO CHEST 08/29/2019 6:44:23 AM FINDINGS: Lungs: There is a 6 mm solid pulmonary nodule in the posterior segment of the left lower lobe, which is unchanged compared to the prior CTA chest on 08/29/2019. The lungs were not fully imaged. Heart: No cardiomegaly or pericardial effusion. Diaphragm: Intact. Liver: Unremarkable. No liver lesion is identified. The contour of the liver is smooth. No hepatomegaly is noted. Gallbladder and bile ducts: No calcified gallstones are noted. No gallbladder wall thickening, pericholecystic fluid, or pericholecystic inflammatory changes are identified. No dilation of the bile ducts is noted. No calcified stones are seen in the common bile duct. Pancreas: Normal. No dilation of the main pancreatic duct is noted. There is no inflammatory fat stranding around the pancreas to suggest acute pancreatitis. Spleen: Normal. No splenomegaly is noted. Incidental note is made of a small accessory spleen. Adrenal glands: Normal. No adrenal mass is noted. Kidneys and ureters: The kidneys are normal in appearance. No renal lesion is noted. No stones are noted in the kidneys or ureters. There is no hydronephrosis or hydroureter. There are no wedge-shaped areas of low attenuation in the kidneys to suggest pyelonephritis. There is no renal abscess or perinephric fluid collection. Stomach and bowel: Postoperative changes are noted from a Martine-en-Y gastric bypass surgery. There is no evidence for a bowel obstruction, diverticulosis, diverticulitis, colitis, perforated viscus, pneumatosis intestinalis, intussusception, or volvulus. Appendix: Normal. There is no evidence for appendicitis. Intraperitoneal space: There is a 2.5 cm fat density lesion with an enhancing rim and mild surrounding fat stranding in the mesentery in the left upper quadrant of the abdomen (images 67-69 of the axial series 401 and images 27-29 of the coronal series 402), which may represent focal mesenteric fat necrosis or panniculitis. No free air. No ascites. No asbcess. Retroperitoneal space: No fluid collection. No mass. Vasculature: The abdominal aorta is patent, normal in caliber, and there is no dissection. The iliac arteries, common femoral arteries, renal arteries, celiac artery, superior mesenteric artery, and inferior mesenteric artery are patent. Lymph nodes: No enlarged lymph nodes. Urinary bladder: The distended urinary bladder is normal in appearance. No stones or masses are seen in the bladder. Reproductive: Incidental note is made of a 1.8 cm corpus luteal cyst in the left ovary, for which follow-up is not necessary. The right ovary is unremarkable. The uterus is anteverted. Bones/joints: There is no fracture or dislocation. No suspicious osteolytic or osteoblastic lesion. Soft tissues: There is a horizontal incision scar in the anterior pelvic wall. There is a 23 mm irregular soft tissue density nodule along the right side of the pelvic wall scar (image 25 of the coronal series 402). There is a tiny fat containing umbilical hernia. IMPRESSION: 1. 2.5 cm fat density lesion with an enhancing rim and mild surrounding fat stranding in the mesentery in the left upper quadrant of the abdomen, which may represent focal mesenteric fat necrosis or panniculitis. 2. 23 mm irregular soft tissue density nodule along the right side of the pelvic wall scar, which may represent focal scar tissue, a keloid, or mass. 3. 6 mm solid pulmonary nodule in the posterior segment of the left lower lobe, which is unchanged compared to the prior CTA chest on 08/29/2019. For patients at low risk (minimal or absent history of smoking and of other known risk factors), consider CT Chest at 12 months. For patients at high risk (history of smoking or of other known risk factors), recommend CT Chest at 12 months. (Reference: Constance) REFERENCES: Constance Christopher, et al. Guidelines for Management of Incidental Pulmonary Nodules Detected on CT Images: From the Fleischner Society 2017. Radiology. 2017;284(1):228-243. Electronically signed by: Bernabe Morfin On 08/17/2020 01:02:29 AM
[2020-08-17 02:46] VITALS: BP 118/70
--- NOTE | 2020-08-17 06:29 | ED PDOC ---
Post-Departure Follow-Up ct abd/p faxed to [facility] for fu Sherita Matthews MD Aug 17, 2020 06:29
== END 2020-08-17 02:56 | disposition home or self-care (01) ==
LOC: M ED 20:11
DX: G43.909 Migraine, unspecified, not intractable, without status migrainosus (principal); R10.9 Unspecified abdominal pain; R93.5 Abnormal findings on diagnostic imaging of other abdominal regions, including retroperitoneum; I10 Essential (primary) hypertension; E78.9 Disorder of lipoprotein metabolism, unspecified; F41.9 Anxiety disorder, unspecified; E28.2 Polycystic ovarian syndrome; Z98.84 Bariatric surgery status; J30.9 Allergic rhinitis, unspecified; Z88.8 Allergy status to other drugs, medicaments and biological substances; Z20.828 Contact with and (suspected) exposure to other viral communicable diseases; Z79.899 Other long term (current) drug therapy
CPT/HCPCS: 70450; 74177; 80048; 80076; 83690; 84703; 85025; 96374; 99284; J2765; Q9963; Q9967

== ENCOUNTER 2020-08-22 12:49 | Emergency (ER) | payer BC ==
[~2020-08-22] VITALS: Ht 165.1 cm; Wt 75.9 kg
[~2020-08-22 12:49] MED LIST changes: +HYDR-3363; +MONT5TAB2
[2020-08-22] MEDS ORDERED: METOCLOPRAMIDE 10 MG TAB PO ONE (13:45)
[2020-08-22 13:59] LABS: HEMATOCRIT 37.4 % (36.0-47.0); HEMOGLOBIN 11.6 g/dl (12.0-15.5); MEAN CORPUSCULAR HEMOGLOBIN 24.2 pg (27.0-33.0); MEAN CORPUSCULAR VOLUME 78.1 fl (80.0-96.0); PLATELET COUNT, AUTOMATED 271 10^3/uL (150-450); RED BLOOD COUNT 4.79 10^6/uL (4.00-5.40); WHITE BLOOD COUNT 5.1 10^3/uL (4.0-10.0)
--- NOTE | 2020-08-22 14:02 | REP ---
INDICATION: facial numbness. COMPARISON: Comparison head CT study August 17, 2020.. TECHNIQUE: Helical scanning is acquired. 5 mm axial images were reformatted. Coronal MPR images were generated. FINDINGS: Bone window settings demonstrate an intact bony calvarium. There is no evidence of skull fracture or incidental bony calvarial lesion. The visualized paranasal sinuses appear clear. No intraorbital abnormality is seen. On soft tissue window setting images; the lateral, third, and fourth ventricles are normal in size and position. Arriaga-white differentiation pattern is normal above and below the tentorium. There are is no evidence of intracranial hemorrhage. No mass, edema, infarction, or midline shift is seen. No extra-axial fluid collection is appreciated. IMPRESSION: Negative noncontrast head CT. <Electronically signed by Mayo Tejeda > 08/22/20 [id number]
[2020-08-22] MEDS ORDERED: PRED20TA PO (14:26)
[2020-08-22] MEDS ORDERED: predniSONE 20 MG TAB PO ONE (14:30)
[2020-08-22 14:33] LABS: BLOOD UREA NITROGEN 9 MG/DL (7-18); CALCIUM LEVEL 9.6 MG/DL (8.5-10.1); CARBON DIOXIDE LEVEL 26 MEQ/L (21-32); CHLORIDE LEVEL 108 MEQ/L (98-107); CREATININE FOR GFR 0.79 MG/DL (0.55-1.30); FREE THYROXINE INDEX 3.7 % (1.3-4.8); GLOMERULAR FILTRATION RATE > 60.0 (>60); GLUCOSE, FASTING 100 MG/DL (70-100); POTASSIUM SERUM 4.3 MEQ/L (3.5-5.1); SODIUM LEVEL 140 MEQ/L (136-145); T UPTAKE 37 % (30-39); THYROXINE (T4) 9.9 UG/DL (4.5-12.0)
[2020-08-22 14:48] VITALS: BP 113/73
== END 2020-08-22 14:50 | disposition home or self-care (01) ==
LOC: M ED 12:49
DX: G62.9 Polyneuropathy, unspecified (principal); E11.9 Type 2 diabetes mellitus without complications; K21.9 Gastro-esophageal reflux disease without esophagitis; E07.9 Disorder of thyroid, unspecified; G51.0 Bell's palsy; Z98.84 Bariatric surgery status; J30.9 Allergic rhinitis, unspecified; Z88.8 Allergy status to other drugs, medicaments and biological substances; Z20.828 Contact with and (suspected) exposure to other viral communicable diseases; Z79.899 Other long term (current) drug therapy

== ENCOUNTER → 2020-09-01 | Outpatient (REF) | payer BC ==
[~2020-09-01] MED LIST changes: +PRED20TA PO
[2020-09-01 16:44] LABS: BASO % 0.4 % (0.0-1.0); EOS % 0.1 % (0.0-3.0); HEMATOCRIT 41.6 % (36.0-47.0); HEMOGLOBIN 12.6 g/dl (12.0-15.5); LYMPH # 0.9 10^3/uL (1.5-5.0); LYMPH % 10.8 % (24.0-44.0); MEAN CORPUSCULAR HEMOGLOBIN 24.2 pg (27.0-33.0); MEAN CORPUSCULAR HGB CONC 30.3 g/dl (32.0-36.5); MEAN CORPUSCULAR VOLUME 79.8 fl (80.0-96.0); MONO # 0.2 10^3/uL (0.0-0.8); MONO % 2.1 % (0.0-5.0); NEUTROPHILS # 7.3 10^3/uL (1.5-8.5); NEUTROPHILS % 86.1 % (36.0-66.0); PLATELET COUNT, AUTOMATED 316 10^3/uL (150-450); RED BLOOD COUNT 5.21 10^6/uL (4.00-5.40); WHITE BLOOD COUNT 8.4 10^3/uL (4.0-10.0)
[2020-09-01 17:05] LABS: ALBUMIN 3.9 GM/DL (3.2-5.2); ALT/SGPT 25 U/L (12-78); BILIRUBIN,TOTAL 0.4 MG/DL (0.2-1.0); BLOOD UREA NITROGEN 12 MG/DL (7-18); CALCIUM LEVEL 8.9 MG/DL (8.5-10.1); CARBON DIOXIDE LEVEL 28 MEQ/L (21-32); CHLORIDE LEVEL 106 MEQ/L (98-107); CREATININE FOR GFR 0.84 MG/DL (0.55-1.30); FREE T4 1.65 NG/DL (0.76-1.46); GLOMERULAR FILTRATION RATE > 60.0 (>60); GLUCOSE, FASTING 190 MG/DL (70-100); MAGNESIUM LEVEL 2.3 MG/DL (1.8-2.4); POTASSIUM SERUM 4.9 MEQ/L (3.5-5.1); SODIUM LEVEL 139 MEQ/L (136-145); THYROID STIMULATING HORMONE 0.582 uIU/ML (0.358-3.740); TOTAL PROTEIN 7.3 GM/DL (6.4-8.2)
[2020-09-01 17:06] LABS: VITAMIN B12 LEVEL > 2000 PG/ML (247-911)
== END ==
LOC: M SFHCCLAY 13:38
PROVIDERS: ATTEND Nurse Practitioner Family
DX: R51.9 Headache, unspecified (principal); R11.10 Vomiting, unspecified

== ENCOUNTER → 2020-10-07 | Outpatient (CLI) | payer BC ==
[~2020-10-07] MED LIST changes: -GLYB5TA PO; +GLYB5TAB6 PO; +LISI10TA22 PO; -LISI10TA4 PO; +MONT10TA10; -MONT5TAB2
--- NOTE | 2020-10-08 07:16 | REP ---
INDICATION: N92.6 IRREG BLEEDING COMPARISON: None. TECHNIQUE: Transabdominal pelvic ultrasound followed by transvaginal examination for better evaluation of the endometrium and adnexa with color Doppler evaluation of the ovaries. FINDINGS: Bladder is unremarkable and measures 9.7 x 10.0 x 5.9 cm (300 cc). Heterogeneous anteverted uterus measures 10.0 x 5.6 x 5.9 cm. The endometrial complex measures 13 mm thickness. Posterior intramural fibroid suggested measuring 1.1 cm maximal diameter. Possible 13 mm endometrial polyp towards the fundal portion of the endometrium cannot be excluded. Multiple nabothian cysts are identified in the cervical region measuring up to 9 mm. Right ovary measures 4.7 x 2.6 x 2.9 cm (RI 0.48) and includes 3.4 x 2.5 x 2.5 cm complex cyst possible hemorrhagic follicle. Left ovary is normal in appearance and measures 2.6 x 1.2 x 1.8 cm. Directed ultrasound examination overlying the palpable mass in the right lower quadrant is a hypoechoic irregular lesion measuring 1.8 x2.1 x 1.9 cm within the deep subcutaneous tissue demonstrating surrounding subtle vascularity and is otherwise nonspecific. Lesion appears relatively solid. IMPRESSION: 1. Heterogeneous anteverted uterus with possible intramural fibroid and 13 mm endometrial polyp. 2. Complex right ovarian cyst likely physiologic hemorrhagic cyst. Consider follow-up examination in 4-6 weeks to evaluate for resolution. 3. Palpable mass corresponds to a solid lesion in the deep subcutaneous tissue which cannot be further classified by ultrasound. This correlates with finding on recent CT dated 08/17/2020 which is also nonspecific and may be related to prior surgery. Differential diagnosis may include lymph node as well as granuloma. <Electronically signed by Joao Pal > 10/08/20 [id number]
== END ==
LOC: M WHC 15:25
PROVIDERS: ATTEND Specialist
DX: N92.6 Irregular menstruation, unspecified (principal); N83.201 Unspecified ovarian cyst, right side

== ENCOUNTER → 2020-12-31 | Outpatient (REF) | payer BC ==
[2021-01-01 11:54] LABS: APPEARANCE, URINE CLOUDY (CLEAR); BACTERIA, URINE AUTO 1+ (NEGATIVE); BILIRUBIN, URINE AUTO NEGATIVE (NEGATIVE); BLOOD, URINE BLOOD 1+ (NEGATIVE); COLOR, URINE YELLOW (YELLOW); GLUCOSE, URINE (UA) AUTO NEGATIVE (NEGATIVE); KETONE, URINE AUTO NEGATIVE (NEGATIVE); LEUKOCYTE ESTERASE, URINE AUTO 3+ (NEGATIVE); NITRITE, URINE AUTO NEGATIVE (NEGATIVE); PROTEIN, URINE AUTO 1+ mg/dL (NEGATIVE); RBC, URINE AUTO 17 /HPF (0-3); SPECIFIC GRAVITY URINE AUTO 1.015 (1.002-1.035); SQUAMOUS EPITHELIAL CELL UR AU 0 /HPF (0-6); UROBILINOGEN, URINE AUTO 0.2 mg/dL (0.0-2.0); WBC, URINE AUTO 170 /HPF (0-3)
== END ==
LOC: M SFHCCLAY 15:10
PROVIDERS: ATTEND Nurse Practitioner Family
DX: R35.0 Frequency of micturition (principal)

== ENCOUNTER → 2021-05-15 | Outpatient (CLI) | payer BC | LOC: M LABSMTC 10:40 | PROVIDERS: ATTEND Pediatrics | DX: U07.1 COVID-19 (principal) | CPT/HCPCS: C9803; U0003 ==

== ENCOUNTER → 2022-01-14 | Outpatient (REF) | payer OTHER ==
[~2022-01-14] MED LIST changes: +FLUO-96 PO; -FLUO20CA20 PO; -MONT10TA10; +MONT10TA97; -OMEP-221; +OMEP40CA5
[2022-01-14 11:56] LABS: BASO % 0.6 % (0.0-1.0); EOS # 0.3 10^3/uL (0.0-0.5); EOS % 4.3 % (0.0-3.0); HEMATOCRIT 37.8 % (36.0-47.0); LYMPH % 31.7 % (24.0-44.0); MEAN CORPUSCULAR HEMOGLOBIN 25.1 pg (27.0-33.0); MEAN CORPUSCULAR HGB CONC 31.7 g/dl (32.0-36.5); MEAN CORPUSCULAR VOLUME 78.9 fl (80.0-96.0); MONO # 0.7 10^3/uL (0.0-0.8); MONO % 10.9 % (2.0-8.0); NEUTROPHILS # 3.3 10^3/uL (1.5-8.5); PLATELET COUNT, AUTOMATED 264 10^3/uL (150-450); RED BLOOD COUNT 4.79 10^6/uL (4.00-5.40); WHITE BLOOD COUNT 6.3 10^3/uL (4.0-10.0)
[2022-01-14 12:51] LABS: ALBUMIN 3.6 GM/DL (3.2-5.2); ALT/SGPT 48 U/L (12-78); BILIRUBIN,TOTAL 0.3 MG/DL (0.2-1.0); BLOOD UREA NITROGEN 14 MG/DL (7-18); CALCIUM LEVEL 9.5 MG/DL (8.5-10.1); CARBON DIOXIDE LEVEL 25 MEQ/L (21-32); CHLORIDE LEVEL 108 MEQ/L (98-107); CREATININE FOR GFR 0.63 MG/DL (0.55-1.30); FREE T4 0.94 NG/DL (0.76-1.46); GLOMERULAR FILTRATION RATE > 60.0 (>60); GLUCOSE, FASTING 120 MG/DL (70-100); IRON (FE) 33 UG/DL (50-170); MAGNESIUM LEVEL 1.9 MG/DL (1.8-2.4); PERCENT SATURATION 7.3 % (13.2-45.0); POTASSIUM SERUM 4.5 MEQ/L (3.5-5.1); SODIUM LEVEL 139 MEQ/L (136-145); TOTAL IRON BINDING CAPACITY 455 UG/DL (250-450); TOTAL PROTEIN 6.8 GM/DL (6.4-8.2)
[2022-01-14 12:55] LABS: VITAMIN B12 LEVEL 495 PG/ML (247-911)
== END ==
LOC: M SFHCCLAY 07:46
PROVIDERS: ATTEND Nurse Practitioner Family
DX: R51.9 Headache, unspecified (principal); R11.10 Vomiting, unspecified; E03.9 Hypothyroidism, unspecified; Z98.84 Bariatric surgery status

== ENCOUNTER 2023-08-19 17:01 | Emergency (ER) | payer OTHER ==
[~2023-08-19] VITALS: Ht 152.4 cm; Wt 96.7 kg
[~2023-08-19 17:01] MED LIST changes: -LABE300T2 PO; +LABE300T55 PO; -PAXI40TA10 PO; +PAXI40TA12 PO
[2023-08-19 17:02] VITALS: TEMP 98.4
[2023-08-19 18:30] VITALS: BP 144/103
[2023-08-19 18:31] VITALS: O2SAT 98
[2023-08-19 18:52] LABS: BASO % 0.5 % (0.0-1.0); EOS % 0.5 % (0.0-3.0); HEMATOCRIT 39.5 % (36.0-47.0); HEMOGLOBIN 12.7 g/dl (12.0-15.5); LYMPH # 0.7 10^3/uL (1.5-5.0); LYMPH % 11.4 % (24.0-44.0); MEAN CORPUSCULAR HEMOGLOBIN 25.5 pg (27.0-33.0); MEAN CORPUSCULAR HGB CONC 32.2 g/dl (32.0-36.5); MEAN CORPUSCULAR VOLUME 79.2 fl (80.0-96.0); MONO # 0.7 10^3/uL (0.0-0.8); MONO % 11.7 % (2.0-8.0); NEUTROPHILS # 4.6 10^3/uL (1.5-8.5); NEUTROPHILS % 75.4 % (36.0-66.0); PLATELET COUNT, AUTOMATED 269 10^3/uL (150-450); RED BLOOD COUNT 4.99 10^6/uL (4.00-5.40); WHITE BLOOD COUNT 6.1 10^3/uL (4.0-10.0)
[2023-08-19 19:25] LABS: BLOOD UREA NITROGEN 8 MG/DL (9-23); CALCIUM LEVEL 9.1 MG/DL (8.5-10.1); CARBON DIOXIDE LEVEL 26 MMOL/L (20-31); CHLORIDE LEVEL 101 MMOL/L (98-107); CK-MB VALUE MASS < 1.0 NG/ML (<3.6); CPK CREATINE PHOSPHOKINASE 52 U/L (34-145); CREATININE FOR GFR 0.59 MG/DL (0.55-1.30); GLOMERULAR FILTRATION RATE > 60.0 (>60); GLUCOSE, FASTING 139 MG/DL (60-100); MB/CK RELATIVE INDEX 1.92 (< OR =4); POTASSIUM SERUM 4.1 MMOL/L (3.5-5.1); SODIUM LEVEL 136 MMOL/L (136-145)
[2023-08-19] MEDS ORDERED: amLODIPine 5 MG TAB PO ONE (19:45)
[2023-08-19 20:18] VITALS: BP 144/103
[2023-08-19] MEDS ORDERED: ISOVUE-370 76% 100ML VIAL As Ordered ONE (20:58)
[2023-08-19 21:15] LABS: HCG, SERUM QUALITATIVE NEGATIVE (NEGATIVE)
== END 2023-08-19 22:57 | disposition home or self-care (01) ==
LOC: M ED 17:01
DX: U07.1 COVID-19 (principal); R07.89 Other chest pain; J45.909 Unspecified asthma, uncomplicated; Z82.49 Family history of ischemic heart disease and other diseases of the circulatory system; Z79.899 Other long term (current) drug therapy; Z88.8 Allergy status to other drugs, medicaments and biological substances
CPT/HCPCS: 71045; 71275; 80048; 82550; 82553; 84484; 84703; 85025; 87486; 87581; 87633; 87798; 93005; 93041; 94760; 99284; Q9967

== ENCOUNTER → 2024-01-05 | Outpatient (CLI) | payer OTHER ==
[~2024-01-05] MED LIST changes: +LABE300T28 PO; -LABE300T55 PO; +MONT5TAB7 PO; -SING5CHW23 PO
== END ==
LOC: M WHC 07:35
PROVIDERS: ATTEND Nurse Practitioner Family
DX: Z12.31 Encounter for screening mammogram for malignant neoplasm of breast (principal)

== ENCOUNTER → 2024-08-03 | Outpatient (REF) | payer OTHER ==
[2024-08-03 11:36] LABS: CHOLESTEROL RISK RATIO 4.3 (<5); HDL CHOLESTEROL 49.2 MG/DL (>40); LDL CHOLESTEROL 132.8 MG/DL (<100); MAGNESIUM LEVEL 1.8 MG/DL (1.8-2.4); NON-HDL-C 162.8 MG/DL; PERCENT SATURATION 11.9 % (13.2-45.0)
[2024-08-03 11:40] LABS: FREE T4 1.15 NG/DL (0.89-1.76)
[2024-08-03 11:41] LABS: THYROID STIMULATING HORMONE 3.735 uIU/ML (0.55-4.78)
[2024-08-03 11:42] LABS: TOTAL 25(OH) VITAMIN D 45.8 NG/ML (20.0-100.0)
[2024-08-03 11:44] LABS: T UPTAKE 38.1 % (22.5-37.0)
[2024-08-03 11:45] LABS: BASO % 0.5 % (0.0-1.0); EOS # 0.1 10^3/uL (0.0-0.5); EOS % 2.5 % (0.0-3.0); HEMATOCRIT 42.6 % (36.0-47.0); HEMOGLOBIN 13.6 g/dl (12.0-15.5); LYMPH # 2.1 10^3/uL (1.5-5.0); LYMPH % 38.8 % (24.0-44.0); MEAN CORPUSCULAR HEMOGLOBIN 26.1 pg (27.0-33.0); MEAN CORPUSCULAR HGB CONC 31.9 g/dl (32.0-36.5); MEAN CORPUSCULAR VOLUME 81.8 fl (80.0-96.0); MONO # 0.5 10^3/uL (0.0-0.8); MONO % 9.6 % (2.0-8.0); NEUTROPHILS # 2.7 10^3/uL (1.5-8.5); NEUTROPHILS % 48.2 % (36.0-66.0); PLATELET COUNT, AUTOMATED 246 10^3/uL (150-450); RED BLOOD COUNT 5.21 10^6/uL (4.00-5.40); WHITE BLOOD COUNT 5.5 10^3/uL (4.0-10.0)
[2024-08-03 11:55] LABS: HEMOGLOBIN A1c 7.7 % (4.0-6.0)
== END ==
LOC: M SFHCCLAY 08:39
PROVIDERS: ATTEND Nurse Practitioner Family
DX: E03.9 Hypothyroidism, unspecified (principal); F41.1 Generalized anxiety disorder; R51.9 Headache, unspecified; Z98.84 Bariatric surgery status; J30.2 Other seasonal allergic rhinitis; E61.1 Iron deficiency; R23.9 Unspecified skin changes

== ENCOUNTER → 2024-09-14 | Outpatient (CLI) | payer OTHER | LOC: M WHC 14:20 | PROVIDERS: ATTEND Nurse Practitioner Family | DX: E04.9 Nontoxic goiter, unspecified (principal) ==

== ENCOUNTER → 2024-12-21 | Outpatient (CLI) | payer OTHER ==
[2024-12-21 14:10] LABS: ALBUMIN 3.8 G/DL (3.2-5.2); ALKALINE PHOSPHATASE 66 U/L (35-104); ALT/SGPT 38 U/L (7.0-40); AST/SGOT 23 U/L (<34); BILIRUBIN,TOTAL 0.3 MG/DL (0.3-1.2); BLOOD UREA NITROGEN 15 MG/DL (9-23); CALCIUM LEVEL 8.8 MG/DL (8.5-10.1); CARBON DIOXIDE LEVEL 27 MMOL/L (20-31); CHLORIDE LEVEL 103 MMOL/L (98-107); CREATININE FOR GFR 0.57 MG/DL (0.55-1.30); GLOMERULAR FILTRATION RATE > 90.0 (>58); GLUCOSE, FASTING 184 MG/DL (60-100); POTASSIUM SERUM 4.4 MMOL/L (3.5-5.1); SODIUM LEVEL 137 MMOL/L (136-145)
[2024-12-21 14:15] LABS: BASO # 0.1 10^3/uL (0.0-0.2); BASO % 0.8 % (0.0-1.0); EOS # 0.1 10^3/uL (0.0-0.5); EOS % 1.8 % (0.0-3.0); HEMATOCRIT 44.4 % (36.0-47.0); LYMPH # 1.9 10^3/uL (1.5-5.0); LYMPH % 24.2 % (24.0-44.0); MEAN CORPUSCULAR HEMOGLOBIN 26.7 pg (27.0-33.0); MEAN CORPUSCULAR HGB CONC 31.5 g/dl (32.0-36.5); MEAN CORPUSCULAR VOLUME 84.7 fl (80.0-96.0); MONO # 0.7 10^3/uL (0.0-0.8); MONO % 9.2 % (2.0-8.0); NEUTROPHILS # 5.1 10^3/uL (1.5-8.5); NEUTROPHILS % 63.7 % (36.0-66.0); PLATELET COUNT, AUTOMATED 257 10^3/uL (150-450); RED BLOOD COUNT 5.24 10^6/uL (4.00-5.40)
== END ==
LOC: M WUC 09:37
PROVIDERS: ATTEND Physician Assistant
DX: R10.9 Unspecified abdominal pain (principal)

== ENCOUNTER → 2025-04-05 | Outpatient (CLI) | payer OTHER | LOC: M WHC 14:50 | PROVIDERS: ATTEND Obstetrics & Gynecology Obstetrics | DX: Z12.31 Encounter for screening mammogram for malignant neoplasm of breast (principal); R92.313 Mammographic fatty tissue density, bilateral breasts ==

== ENCOUNTER → 2025-08-05 | Outpatient (REF) | payer OTHER ==
[2025-08-05 12:19] LABS: BASO # 0.0 10^3/uL (0.0-0.2); BASO % 0.7 % (0.0-1.0); EOS # 0.2 10^3/uL (0.0-0.5); EOS % 3.3 % (0.0-3.0); LYMPH # 1.7 10^3/uL (1.5-5.0); LYMPH % 31.9 % (24.0-44.0); MONO # 0.6 10^3/uL (0.0-0.8); MONO % 10.3 % (2.0-8.0); NEUTROPHILS # 2.9 10^3/uL (1.5-8.5); NEUTROPHILS % 53.6 % (36.0-66.0); PLATELET COUNT, AUTOMATED 231 10^3/uL (150-450)
[2025-08-05 12:25] LABS: ALT/SGPT 32 U/L (7.0-40); AST/SGOT 19 U/L (<34); CALCIUM LEVEL 9.1 MG/DL (8.5-10.1); CARBON DIOXIDE LEVEL 30 MMOL/L (20-31); CHLORIDE LEVEL 101 MMOL/L (98-107); CHOLESTEROL LEVEL 212 MG/DL (<200); CHOLESTEROL RISK RATIO 4.41 (<5); CREATININE FOR GFR 0.60 MG/DL (0.55-1.30); GLOMERULAR FILTRATION RATE > 90.0 (>58); IRON (FE) 103 UG/DL (50-170); LDL CHOLESTEROL 130.0 MG/DL (<100); MAGNESIUM LEVEL 1.8 MG/DL (1.8-2.4); NON-HDL-C 164.0 MG/DL; PERCENT SATURATION 27.0 % (13.2-45.0); POTASSIUM SERUM 5.0 MMOL/L (3.5-5.1); SODIUM LEVEL 139 MMOL/L (136-145); TOTAL 25(OH) VITAMIN D 37.2 NG/ML (20.0-100.0); TRIGLYCERIDES LEVEL 170 MG/DL (<150)
[2025-08-05 12:26] LABS: FREE T4 1.31 NG/DL (0.89-1.76)
[2025-08-05 12:44] LABS: ESTIMATED AVERAGE GLUCOSE 217.0 MG/DL (60-110)
[2025-08-05 12:46] LABS: CREATININE, URINE 164.4 MG/DL; MALB URINE SIEMENS 7.0 MG/L; MAU/CREAT RATIO 4.2 MCG/MG (0.0-30.0)
== END ==
LOC: M SFHCCLAY 08:31
PROVIDERS: ATTEND Nurse Practitioner Family
DX: E11.8 Type 2 diabetes mellitus with unspecified complications (principal); J45.901 Unspecified asthma with (acute) exacerbation; F41.1 Generalized anxiety disorder; E03.9 Hypothyroidism, unspecified; R51.9 Headache, unspecified; Z98.84 Bariatric surgery status; J30.2 Other seasonal allergic rhinitis; E61.1 Iron deficiency